=== PATIENT | male | born 1950 | race Caucasian/White ===

== ENCOUNTER 2019-03-25 13:50 | Inpatient (IN) ==
[2019-03-25] MEDS ORDERED: Isovue-370 500 ML BOTTLE IVP ONE ×2 (14:14→14:21)
--- NOTE | 2019-03-25 14:17 | Emergency Department Note ---
Disposition Clinical Impression: Hyperkalemia, Urinary retention Disposition: Admitted As Inpatient Condition: Fair Time of Disposition: 17:35 General Adult HPI - General Chief complaint: ED Urogenital-Male Stated complaint: abdominal pain Time Seen by Provider: 03/25/19 14:03 Source: patient, EMS Mode of arrival: EMS Limitations: no limitations Nursing Notes Reviewed: Yes Vital Signs Reviewed: Yes - History of Present Illness HPI Narrative: Mr. James is a 68-year-old male presented to the ED reporting he cannot urinate. He reports that he had a right knee replacement on 03/11/19 and thereafter he has been unable to urinate. He reports he does have chronic history of BPH and takes Flomax and normally able to urinate and this difficulty is newer. He states that he is able to have some "dribbles" and it is nonbloody Additionally, complaining of pelvic pain. Reports that he is having bowel movements which are nonbloody. Additionally he reports he was supposed to follow outpatient after surgical intervention with his orthopedic surgeon but he was unable to because of severe pain in his bilateral legs. He is reporting worsening pain in his right leg. He is reporting the edema for him is new and he does not have any history of congestive heart failure or edema. Additionally he is reporting difficulty breathing and in the past reports he has never had any difficulty breathing and normally saturates 97% on room air. Denies fever, chills, nausea, emesis, chest pain, hematuria, bowel changes. Pain Scale: 9 - Related Data Home Medications Medication Instructions Recorded Confirmed Allopurinol [Zyloprim] 300 mg PO QAM 03/25/19 03/25/19 Amlodipine Besylate 10 mg PO QAM 03/25/19 03/25/19 Aspirin 325 mg PO BID 03/25/19 03/25/19 Bisoprolol/HCTZ [Ziac 1 tab PO QPM 03/25/19 03/25/19] Docusate [Colace] 100 mg PO QAM 03/25/19 03/25/19 Fenofibrate Nanocrystallized 145 mg PO QAM 03/25/19 03/25/19 [Fenofibrate] Lisinopril [Zestril] 20 mg PO BID 03/25/19 03/25/19 Metformin HCl [Glucophage] 1,000 mg PO BID 03/25/19 03/25/19 Nitroglycerin [Nitrostat] 0.4 mg SL PRN PRN 03/25/19 03/25/19 Oxycodone HCl [Roxybond] 5 mg PO Q8HR PRN 03/25/19 03/25/19 Pravastatin Sodium [Pravachol] 80 mg PO QPM 03/25/19 03/25/19 Tamsulosin HCl [Flomax] 0.4 mg PO QPM 03/25/19 03/25/19 Tizanidine HCl [Zanaflex] 4 mg PO HS PRN 03/25/19 03/25/19 Allergies Allergy/AdvReac Type Severity Reaction Status Date / Time No Known Allergies Allergy Verified 03/25/19 14:26 All systems ED: reviewed and negative except as stated. Review of Systems: As Per HPI Constitutional: Denies: fever, chills, weakness Eyes: Denies: eye pain, vision change Cardiovascular: Denies: chest pain, palpitations Respiratory: Reports: dyspnea. Denies: cough, wheezes Gastrointestinal: Reports: abdominal pain. Denies: nausea, vomiting, hematochezia Genitourinary: Reports: other (Difficulty urinating). Denies: dysuria, frequency Musculoskeletal: Reports: other (Bilateral leg swelling, leg pain) Neurological: Denies: headache, weakness Past Medical History - Past Medical History Medical history: Reports: diabetes, hyperlipidemia, hypertension, syncope Psychiatric history: Reports: no psych history - Social History Smoking Status: Never smoker Smokeless Tobacco Status: No Alcohol use: Reports: none Drug use: Reports: none Physical Exam - General Limitations: no limitations General appearance: alert - Head Head exam: atraumatic, normocephalic - Eye Eye exam: Present: normal appearance, EOMI. Absent: scleral icterus - ENT ENT exam: normal exam, normal oropharynx, mucous membranes moist - Neck Neck exam: Present: normal inspection, full ROM, trachea midline - Chest Chest inspection: Present: normal inspection, symmetric chest wall rise. Absent: tenderness - Respiratory Respiratory exam: Present: other (Decreased breath sounds on left lower lung). Absent: respiratory distress, wheezes - Cardiovascular Cardiovascular exam: Present: regular rate, normal rhythm, +S1, +S2 - Abdominal Exam Abdominal exam: Present: tenderness (Tenderness in the pelvic region). Absent: distention, guarding - Extremities Exam Extremities exam: Present: tenderness, pedal edema (+3 pitting edema bilateral lower extremity), calf tenderness (Right leg calf tenderness) - Neurological Exam Neurological exam: Present: alert, oriented X3 - Psychiatric Psychiatric exam: Present: normal affect, normal mood - Skin Skin exam: Present: warm, normal color (right leg is edematous and erythematous) Course Vital Signs Temperature 97.7 F 03/25/19 13:54 Pulse Rate 71 03/25/19 13:54 Respiratory Rate 20 03/25/19 13:54 Blood Pressure 134/86 03/25/19 13:54 O2 Sat by Pulse Oximetry 95 03/25/19 13:54 Temperature 97.7 F 03/25/19 13:54 Pulse Rate 64 03/25/19 15:52 Respiratory Rate 20 03/25/19 15:52 Blood Pressure 124/66 03/25/19 15:52 O2 Sat by Pulse Oximetry 95 03/25/19 15:52 Oxygen Delivery Oxygen Delivery Room Air Medical Decision Making - MDM Narrative Medical decision making narrative: Mr. James is a 68-year-old male presents to the ED complaining of urinary retention. He reports potential started prior to discharge and has been ongoing. He reports last time he urinated he reports urinary retention since 03/11/19. Denies any hematuria. She reports bilateral leg pain worse in the right leg. Denies fever, chills, chest pain. Does report shortness of breath which is new. CBC, BMP, EKG, CTA, bilateral lower summary Dopplers were ordered. EKG showed prolonged NM interval with hyperkalemia of 7.2. Subsequently he received calcium gluconate, insulin, DuoNeb and normal saline. Nephrology was consult and spoke with Dr. 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 She also agreed with the current treatment plan and reported reevaluating the BMP and giving Kayexalate which was ordered. After fluids were given and medication repeat potassium showed potassium of 6.3. CTA had to be canceled due to his renal impairment. Subsequently chest x-ray was ordered which showed cardiomegaly with interstitial edema. Lower extremity Doppler showed left upper leg DVT. Spoke with the admitting hospitalist who recommended getting a renal ultrasound and they would follow the results during inpatient. Patient has been admitted under the hospitalist service. - Lab Data Lab results reviewed: Yes I reviewed the patient's lab results. Result diagrams: 03/25/19 18:16 03/25/19 21:17 Lab Results 03/25/19 03/25/19 03/25/19 Range/Units 14:12 14:12 14:26 WBC 9.0 (4.3-11.1) K/mcL RBC 3.42 L (4.19-5.50) M/mcL Hgb 8.7 L (12.9-16.9) g/dL Hct 27.6 L (37.5-50.1) % MCV 80.7 L (83.0-100.0) fL MCH 25.4 L (28.0-33.3) pg MCHC 31.5 L (31.6-35.5) g/dL RDW 15.2 H (11.5-14.5) % Plt Count 386 (140-400) K/mcL MPV 10.1 (9.4-12.4) fL Immature Gran % 0.4 (0-4) % Seg Neutrophils % 77.6 % Lymphocytes % 10.7 % Monocytes % 10.4 % Eosinophils % 0.8 % Basophils % 0.1 % Neutrophils # 7.0 (1.6-8.9) K/mcL Lymphocytes # 1.0 (0.6-4.6) K/mcL Monocytes # 0.9 (0.0-1.3) K/mcL Eosinophils # 0.1 (0.0-0.6) K/mcL Basophils # 0.0 (0.0-0.2) K/mcL Sodium 131 L (136-145) mEq/L Potassium 7.2 H* (3.5-5.1) mEq/L Chloride 97 L (98-107) mEq/L Carbon Dioxide 16 L (23-29) mEq/L BUN > 130 H (8-23) mg/dL Creatinine 13.33 H (0.70-1.30) mg/dL Est GFR ( Amer) 5 L (> 60) Est GFR (Non-Af Amer) 4 L (> 60) BUN/Creatinine Ratio TNP Glucose 171 H (70-105) mg/dL Calculated Osmolality TNP Calcium 8.5 L (8.6-10.3) mg/dL Urine Color Yellow (Yellow) Urine Clarity Clear (Clear) Urine pH 5.5 (5.0-8.0) pH Units Ur Specific [place] 1.025 (1.010-1.025) Urine Protein Negative (Neg-Trace) mg/dL Urine Glucose (UA) Normal (Normal) mg/dL Urine Ketones Negative (Negative) mg/dL Urine Blood Large H (Negative) Urine Nitrite Negative (Negative) Urine Bilirubin Negative (Negative) Urine Urobilinogen Normal (Normal) mg/dL Ur Leukocyte Esterase Negative (Negative) Urine Microscopic RBC 50-100 H (0-3) per hpf Urine Microscopic WBC 0-3 (0-3) per hpf Ur Squamous Epith Cells Moderate H (None-Few) per lpf Urine Bacteria None Seen (None-Few) per hpf Hyaline Casts None Seen (None-Few) per lpf Ur Culture Indicated? NO (NO) 03/25/19 Range/Units 15:58 WBC (4.3-11.1) K/mcL RBC (4.19-5.50) M/mcL Hgb (12.9-16.9) g/dL Hct (37.5-50.1) % MCV (83.0-100.0) fL MCH (28.0-33.3) pg MCHC (31.6-35.5) g/dL RDW (11.5-14.5) % Plt Count (140-400) K/mcL MPV (9.4-12.4) fL Immature Gran % (0-4) % Seg Neutrophils % % Lymphocytes % % Monocytes % % Eosinophils % % Basophils % % Neutrophils # (1.6-8.9) K/mcL Lymphocytes # (0.6-4.6) K/mcL Monocytes # (0.0-1.3) K/mcL Eosinophils # (0.0-0.6) K/mcL Basophils # (0.0-0.2) K/mcL Sodium (136-145) mEq/L Potassium 6.3 H (3.5-5.1) mEq/L Chloride (98-107) mEq/L Carbon Dioxide (23-29) mEq/L BUN (8-23) mg/dL Creatinine (0.70-1.30) mg/dL Est GFR ( Amer) (> 60) Est GFR (Non-Af Amer) (> 60) BUN/Creatinine Ratio Glucose (70-105) mg/dL Calculated Osmolality Calcium (8.6-10.3) mg/dL Urine Color (Yellow) Urine Clarity (Clear) Urine pH (5.0-8.0) pH Units Ur Specific [place] (1.010-1.025) Urine Protein (Neg-Trace) mg/dL Urine Glucose (UA) (Normal) mg/dL Urine Ketones (Negative) mg/dL Urine Blood (Negative) Urine Nitrite (Negative) Urine Bilirubin (Negative) Urine Urobilinogen (Normal) mg/dL Ur Leukocyte Esterase (Negative) Urine Microscopic RBC (0-3) per hpf Urine Microscopic WBC (0-3) per hpf Ur Squamous Epith Cells (None-Few) per lpf Urine Bacteria (None-Few) per hpf Hyaline Casts (None-Few) per lpf Ur Culture Indicated? (NO) - Radiology Data Radiology results reviewed: Yes I reviewed the patient's radiology results. Critical Care Time Critical Care Time: Yes Total Critical Care Time: 35 Attestation: Acute deep vein thrombosis, acute hyperkalemia, acute dehydration with renal failure, Attestation Statement - Attestation Attestation: Dr. Quinn note: Patient seen in conjunction with resident Dr. Nidhi Ritter; please see her charting for complete documentation. Spent [id number] time with the patient and agree with the patient's treatment and disposition. Renal failure and hyperkalemia noted and treated appropriately. Vital signs stable on admission. Likely obstructive renal failure which will rapidly improve. Deep vein thrombosis noted. Due to blood loss over the last couple weeks likely postsurgical we will withhold emergent anticoagulants and allow these to be discussed and rechecked by the hospitalist due to the patient's hemoglobin and kidney function. No black stools reported. Breathing much improved prior to admission. No significant arrhythmia noted despite the hyperkalemia which is improved with initial treatments. Admitted and stabilized improved condition to the hospitalist.
[2019-03-25 14:26] LABS: Basophils % 0.1 %; Eosinophils # 0.1 K/mcL (0.0-0.6); Eosinophils % 0.8 %; Hematocrit 27.6 % (37.5-50.1); Hemoglobin 8.7 g/dL (12.9-16.9); Immature Granulocytes % 0.4 % (0-4); Lymphocytes % 10.7 %; Mean Corpuscular HGB Conc 31.5 g/dL (31.6-35.5); Mean Corpuscular Hemoglobin 25.4 pg (28.0-33.3); Mean Corpuscular Volume 80.7 fL (83.0-100.0); Mean Platelet Volume 10.1 fL (9.4-12.4); Monocytes # 0.9 K/mcL (0.0-1.3); Monocytes % 10.4 %; Platelet Count 386 K/mcL (140-400); Red Blood Count 3.42 M/mcL (4.19-5.50); Red Cell Distribution Width 15.2 % (11.5-14.5); Segmented Neutrophils % 77.6 %
[2019-03-25 14:38] LABS: Bilirubin,Urine Negative (Negative); Blood,Urine Large (Negative); Clarity,Urine Clear (Clear); Color,Urine Yellow (Yellow); Glucose,Urine (UA) Normal (Normal); Ketones,Urine Negative (Negative); Leukocyte Esterase,Urine Negative (Negative); Nitrite,Urine Negative (Negative); PH,Urine 5.5 pH Units (5.0-8.0); Protein,Urine Negative (Neg-Trace); Specific Gravity,Urine 1.025 (1.010-1.025); Urobilinogen,Urine Normal (Normal)
[2019-03-25 14:40] LABS: Bacteria,Urine None Seen per hpf (None-Few); Hyaline Casts,Urine None Seen per lpf (None-Few); RBC,Urine 50-100 per hpf (0-3); Squamous Epithelial Cell,Urine Moderate per lpf (None-Few); WBC,Urine 0-3 per hpf (0-3)
[2019-03-25 14:51] LABS: Blood Urea Nitrogen > 130 mg/dL (8-23); Calcium 8.5 mg/dL (8.6-10.3); Carbon Dioxide 16 mEq/L (23-29); Chloride 97 mEq/L (98-107); Glucose 171 mg/dL (70-105); Potassium 7.2 mEq/L (3.5-5.1); Sodium 131 mEq/L (136-145); eGFR For African Americans 5 (> 60); eGFR For Non-African Americans 4 (> 60)
[2019-03-25] MEDS ORDERED: Calcium Gluconate 1gm/50mL 1 GM/50 ML BAG IVPB ONE (15:01)
[2019-03-25] MEDS ORDERED: Insulin Human Regular 10 UNIT in 0.9 % Sodium Chloride 10 ML IV ONE ×2 (15:01→17:23)
[2019-03-25] MEDS ORDERED: 0.9 % Sodium Chloride 1,000 ML IVC ONE ×2 (15:06→16:05)
[2019-03-25] MEDS ORDERED: Ipratropium/Albuterol Neb 3 ML IH ONE (15:08)
[2019-03-25] MEDS ORDERED: *HR* Dextrose 50 % in Water (Syg) 50 ML SYRINGE IVP ONE (15:10)
[2019-03-25] MEDS ORDERED: *HR* Dextrose 50 % in Water (Vial) 50 ML VIAL IVP ONE (17:23)
[2019-03-25] MEDS ORDERED: Naloxone 0.4 MG/ML INJ IVP PRN (17:33)
[2019-03-25] MEDS ORDERED: MOM Conc 10 ML UD.LIQ PO PRN (17:33)
[2019-03-25] MEDS ORDERED: *HR* Heparin 5,000 UNIT/ML VIAL IVP ONE (17:38)
[2019-03-25] MEDS ORDERED: *HR* Heparin 5,000 UNIT/ML VIAL IVP PRN ×2 (17:38)
[2019-03-25] MEDS ORDERED: *HR* Dextrose 50 % in Water (Syg) 50 ML SYRINGE IVP PRN (17:40)
[2019-03-25] MEDS ORDERED: Dextrose Gel 15 GM/37.5 ML TUBE PO PRN ×2 (17:40)
[2019-03-25] MEDS ORDERED: D5% in Water 1,000 ML IVC PRN ×2 (17:40→17:52)
[2019-03-25] MEDS ORDERED: Nitroglycerin 0.4 MG TAB.SUBL SL PRN (17:44)
--- NOTE | 2019-03-25 17:45 | Internal Med History&Physical ---
Date of Encounter: 03/25/19 Time of Encounter: 17:41 Internal Medicine - H&P: HPI Chief complaint: unable to urinate Admitted From: Home Plans for Post Hospital Care: Transfer [facility] History of present illness: Mr. James is a 68 year old male diabetes, hyperlipidemia, hypertension, recent right knee replacement presented to [facility] ED with complaint of being unable to urinate. As per patient he recently had a right knee replacement on 03/11/19 by and immediately to leave postoperation he had difficulty urinating so a catheter was inserted which alleviated his symptoms however he was discharged without a catheter in since his discharge she is been unable to urinate. He reports dribbling and has to strain in order to start his stream, he denies frequency or pain however does report that the quantity of his urine has greatly decreased. In addition to above he also complains of abdominal discomfort that keeps him from moving as much as he would like to. He denies nausea, vomiting o r diarrhea. He has no difficulty having bowel movements and denies any blood in his bowel movement. He was supposed to follow-up with his orthopedic surgeon however he is been unable to so since he has no ride in his right lower extremity pain has kept him from walking. He reports that his right lower extremity has been swollen since the procedure and has been red which he reports that it some but improving. He reports that he lost significant amount of blood during surgery as he was told by his surgeon. He denies loss of sensation to the right lower extremity, denies loss of function of the right lower extremity. Denies fever, chills, nausea, emesis, chest pain, shortness breath, palpi tations, hematuria, bowel changes. While in the emergency department he was found to have a left upper leg DVT. He was found to have acute renal failure with hyperkalemia of 7.2 which was treated. As per ED physician he had 1700 mL output after Liu was placed. He was endorsed for further management of his acute renal failure and electrolyte abnormalities along with left leg DVT in right lower extremity swelling and pain. Past Med Surg Social Fam HX - Past Medical History Medical history: diabetes, hyperlipidemia, hypertension, syncope Additional medical history: Gout, AAA Psychiatric history: no psych history - Past Surgical History Additional surgical history: bilateral knee replacements - Social History Smoking Status: Never smoker Smokeless Tobacco Status: No Alcohol use: none Drug use: none Internal Medicine - H&P: Meds Allopurinol [Zyloprim] 300 mg PO DAILY 03/25/19 [History] Amlodipine Besylate 10 mg PO DAILY 03/25/19 [History] Aspirin 325 mg PO BID 03/25/19 [History] Bisoprolol/HCTZ 10/6.25 [Ziac 10/6.25] 1 tab PO DAILY 03/25/19 [History] Docusate [Colace] 100 mg PO BID PRN 03/25/19 [History] Fenofibrate Nanocrystallized [Fenofibrate] 145 mg PO DAILY 03/25/19 [History] Lisinopril [Zestril] 20 mg PO BID 03/25/19 [History] Metformin HCl [Glucophage] 1,000 mg PO BID 03/25/19 [History] Nitroglycerin [Nitrostat] 0.4 mg SL PRN PRN 03/25/19 [History] Oxycodone HCl [Roxybond] 1 tab PO Q8HR PRN 03/25/19 [History] Pravastatin Sodium [Pravachol] 80 mg PO DAILY 03/25/19 [History] Tamsulosin HCl [Flomax] 0.4 mg PO DAILY 03/25/19 [History] Tizanidine HCl [Zanaflex] 1 tab PO HS PRN 03/25/19 [History] Allergy/AdvReac Type Severity Reaction Status Date / Time No Known Allergies Allergy Verified 03/25/19 14:26 All Systems PM: A 10-system review of systems was performed and is negative for pertinent findings except as documented above in the HPI. - Constitutional Vitals: Temp Pulse Resp BP Pulse Ox 97.7 F 64 20 124/66 95 03/25/19 13:54 03/25/19 15:52 03/25/19 15:52 03/25/19 15:52 03/25/19 15:52 Exam: General: Patient is alert, oriented, no acute distress, speaks in full sentences Head: atraumatic, normocephalic, Eye: normal appearance, PERRL, no scleral icterus, no conjunctival injection ENT: mucous membranes moist, normal external ear exam Neck: normal inspection, trachea midline, full ROM, Chest: normal inspection, symmetric chest rise Respiratory: Good respiratory effort. decreased breathsounds lisandro. occasional crackles in the posterior lung field Cardiovascular: Regular rate and rhythm. s1 and s2 No clicks, rubs, gallops, or murmors. Abdomen: Bowel sounds present normoactive x-4 quadrants. Abdomen is soft, nondistended. no Epigastric tenderness. No guarding or rebound. No organ omegaly noted, obese musculoskeletal: Spontaneously moving all extremities.3edema of the RLE up to m id thigh, no calf tenderness of the LLE. Skin: warm, dry, intact.right leg is warm, erythematoues up to mid thigh, sensation is intact, unable to feel pulse secondary to swelling, ROM on toes intact, scattered ecchymosis and petichae Neuro: Alert and oriented x3 no focal deficit Psych: Patient's affect is normal Internal Med - H&P Results - Labs CBC & Chem 7: 03/25/19 14:12 03/25/19 15:58 Labs: Short CBC 03/25/19 Range/Units 14:12 WBC 9.0 (4.3-11.1) K/mcL Hgb 8.7 L (12.9-16.9) g/dL Hct 27.6 L (37.5-50.1) % Plt Count 386 (140-400) K/mcL Neutrophils # 7.0 (1.6-8.9) K/mcL BMP 03/25/19 03/25/19 14:12 15:58 Sodium 131 L Potassium 7.2 H* 6.3 H Chloride 97 L Carbon Dioxide 16 L BUN > 130 H Creatinine 13.33 H Glucose 171 H Calcium 8.5 L Urine 03/25/19 Range/Units 14:26 Urine Color Yellow (Yellow) Urine Clarity Clear (Clear) Urine pH 5.5 (5.0-8.0) pH Units Ur Specific [place] 1.025 (1.010-1.025) Urine Protein Negative (Neg-Trace) mg/dL Urine Glucose (UA) Normal (Normal) mg/dL - EKG Data -: EKG Interpreted by Myself (prolonged UT, IVCD) - EKG Data Prior EKG available for review: no - Impressions ITS Impressions Chest X-Ray 03/25/19 15:57 IMPRESSION: Cardiomegaly and interstitial edema. D/ / Andrés Interiano MD / Andrés Interiano MD Interpreting Provider: Andrés Interiano MD - Assessment and Plan (1) Acute renal failure (ARF) Current Visit: Yes Status: Acute Assessment and plan: multifactorial post obstructive in addition to contrast induced and possible rhabdomyolysis UA with large blood and 50-100 RBC CPK STAT liu inserted with 1800 CC of urine draianed CT A/P without contrast STAT nephrology consulted IVF with NS at 100 cc per hour watch for overload strict intake and out put daily weighs avoid nephrotoxic medications. depending on CT A/p wll consider urology consultation. flomax Qualifiers: Acute renal failure type: unspecified Qualified Code(s): N17.9 - Acute k idney failure, unspecified (2) DVT (deep venous thrombosis) Current Visit: Yes Status: Acute Assessment and plan: starte don heparin drip continue to monitor H/H Qualifiers: DVT location: lower extremity Affected thrombotic vein of extremity: unspecified vein of extremity Chronicity: acute Laterality: left Qualified Code(s): I82.402 - Acute embolism and thrombosis of unspecified deep veins of left lower extremity (3) Hyperkalemia Current Visit: Yes Status: Acute Assessment and plan: secondary to acute renal failure EKG with prolonged UT no hyper acute t waves - received calcium gluconate was treated with IV insulin and D50 and kayaxalate in the ED - and potassium trended down from 7.2 to 6.3 was tretaed again with insulin and D50. EKG ordered follow potassium at 7 pm and treat if he is still hyperkalemic nephrology on board if the hyperkalemia is persistent consider dialysis (4) Status post right knee replacement Current Visit: Yes Status: Acute Assessment and plan: right leg is warm, erythematoues up to mid thigh, sensation is intact, unable to feel pulse secondary to swelling, ROM on toes intact, scattered ecchymosis and petichae rule out compartment syndrome CPK stat discussed case with Dr. Richey who will see the patient and will recommend further imaging and lab test based on his examination Pt/OT once cleared by ortho (5) Microcytic anemia Current Visit: Yes Status: Acute Assessment and plan: as per chart review hemoglobin was 13.2 in 2018 hemoglobin is 8.7 on admission ( does report that his recent orthopedic procedure resulted in blood loss) vs CKD rule out GI bleed ( has been on ASA for DVT prophylaxis) iron panel, ferritin, LDH, b12 and folate ordered type and cross ordered transfuse <7 FOBT (6) Obesity (BMI 35.0-39.9 without comorbidity) Current Visit: Yes Status: Acute Assessment and plan: was counseled nutrition consult (7) Diabetes mellitus Current Visit: Yes Status: Acute Assessment and plan: hold all home oral diabetic medication insulin Sliding scale and adjust as per finger stick A1c in AM Qualifiers: Diabetes mellitus type: type 2 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 Diabetes mellitus complication status: without complication Qualified Code(s): E11.9 - Type 2 diabetes mellitus without complications (8) High anion gap metabolic acidosis Current Visit: Yes Status: Acute Assessment and plan: secondary to ARF rule out other etiologies ( lactic acidosis and rhabdomyolysis) will continue to treat the underlying abnormality ( ARF) nephrology on board PH ordered (9) DVT prophylaxis Current Visit: Yes Status: Acute Assessment and plan: on heparin drip - Time Spent With Patient Total time spent is greater than 50% in coordination of care (as documented) at patient's floor/unit and/or counseling patient: Greater than 35 minutes
[2019-03-25] MEDS ORDERED: Pantoprazole 40 MG VIAL IVP ONE (17:51)
[2019-03-25] MEDS: Heparin 25,000 UNIT/250 ML D5W 25,000 UNIT/250 ML IV.SOLN IVC SCH (18:20)
[2019-03-25 18:36] LABS: Hematocrit 28.8 % (37.5-50.1); Hemoglobin 9.2 g/dL (12.9-16.9); Mean Corpuscular HGB Conc 31.9 g/dL (31.6-35.5); Mean Corpuscular Volume 81.4 fL (83.0-100.0); Mean Platelet Volume 10.1 fL (9.4-12.4); Platelet Count 429 K/mcL (140-400); Red Blood Count 3.54 M/mcL (4.19-5.50); Red Cell Distribution Width 14.9 % (11.5-14.5); White Blood Count 6.8 K/mcL (4.3-11.1)
[2019-03-25 18:52] LABS: Heparin anti-factor XA UFH 0.03 IU/mL (0.30-0.70)
[2019-03-25 18:53] LABS: INR 1.3; Prothrombin Time 15.3 Seconds (9.4-12.1)
[2019-03-25 20:01] LABS: % Iron Saturation 15 % (20-55); Albumin 3.9 g/dL (3.5-5.7); Albumin/Globulin Ratio 1.3 (1.1-2.2); Bilirubin,Direct 0.3 mg/dL (0.0-0.2); Bilirubin,Indirect 0.5 mg/dL (0.0-1.2); Bilirubin,Total 0.8 mg/dL (0.3-1.0); Iron 70 mcg/dL (65-175); Total Protein 6.9 g/dL (6.4-8.9); Transferrin 328 mg/dL (203-362)
[2019-03-25 20:02] LABS: Blood Urea Nitrogen > 130 mg/dL (8-23); Calcium 9.4 mg/dL (8.6-10.3); Carbon Dioxide 19 mEq/L (23-29); Chloride 108 mEq/L (98-107); Glucose 73 mg/dL (70-105); Phosphorous 7.4 mg/dL (2.7-4.5); Potassium 4.8 mEq/L (3.5-5.1); Sodium 143 mEq/L (136-145); eGFR For African Americans 7 (> 60); eGFR For Non-African Americans 6 (> 60)
[2019-03-25 20:20] LABS: Ferritin 230 ng/mL (20-250)
--- NOTE | 2019-03-25 20:22 | Orthopedic Consult Note ---
Date of Encounter: 03/25/19 Time of Encounter: 20:14 History of Present Illness Chief complaint: Follow-up right total knee arthroplasty HPI: Mr. James is a 68 year old male underwent a relatively uncomplicated right total knee arthroplasty 2 weeks ago today. The patient did have acute urinary retention postop, this is treated with intermittent straight catheterization. By postop day #1 the patient was ambulatory and active. He was voiding though small amounts. The patient had previously undergone a left total knee arthroplasty last year with a similar postoperative course of postop urinary retention that resolved in time. Patient states that he got home on 1218. He states that he has had very limited voiding since that time. The patient was supposed to follow-up in the office for follow-up but has not made the follow-up appointment. Patient does h ave a history of urinary retention, he is on tamsulosin regularly. Difficult to obtain the true history but it appears patient has had limited ambulation or working with his total knee. I have reviewed the patient's history and physical examination as well as his current medical record. Pertinent orthopedic examination was pleasant 68-year-old gentleman in minimal distress at this time. Infante catheter was placed in the emergency room and probably 4 L or more of urine was returned. Vital signs are stable. Patient is afebrile. Right lower extremity reveals ecchymosis in the toes and posteriorly in the calf. Calf is soft. Knee incision is clean dry and healthy. Anticipated erythema and edema in the leg. Neurovascular exam is grossly intact. Range of motion is quite limited at 0 to probably 40 degrees. Hemoglobin is stable at 9.2. Platelet count is elevated 429. White blood cell count is normal. Urinalysis does not reveal evidence of an infection. A Doppler ultrasound reportedly reveals some evidence of clot in the left lower extremity but not the right. Impression: Postop right total knee arthroplasty, complicated by urinary retention and acute renal insufficiency. Recommendation: At this time I recommend the patient resume physical therapy working on range of motion and ambulation exercises as soon as he is medically approved to do so. Anticoagulation can be instituted at your discretion. Patient can be weightbearing as tolerated on the right lower extremity. Would elevate the lower extremity was needed to help alleviate some of the edema, this should resolve as his kidney function improves as well. Thank you very much for allowing me to see care for Mr. James. Sincerely, Jorden Richey,DO Past Med Surg Social Fam HX - Past Medical History Medical history: diabetes, hyperlipidemia, hypertension, syncope Additional medical history: Gout, AAA Psychiatric history: no psych history - Past Surgical History Additional surgical history: bilateral knee replacements - Social History Smoking Status: Never smoker Smokeless Tobacco Status: No Alcohol use: none Drug use: none Medications and Allergies Allopurinol [Zyloprim] 300 mg PO QAM 03/25/19 [History] Amlodipine Besylate 10 mg PO QAM 03/25/19 [History] Aspirin 325 mg PO BID 03/25/19 [History] Bisoprolol/HCTZ 10.25 [Ziac 25] 1 tab PO QPM 03/25/19 [History] Docusate [Colace] 100 mg PO QAM 03/25/19 [History] Fenofibrate Nanocrystallized [Fenofibrate] 145 mg PO QAM 03/25/19 [History] Lisinopril [Zestril] 20 mg PO BID 03/25/19 [History] Metformin HCl [Glucophage] 1,000 mg PO BID 03/25/19 [History] Nitroglycerin [Nitrostat] 0.4 mg SL PRN PRN 03/25/19 [History] Oxycodone HCl [Roxybond] 5 mg PO Q8HR PRN 03/25/19 [History] Pravastatin Sodium [Pravachol] 80 mg PO QPM 03/25/19 [History] Tamsulosin HCl [Flomax] 0.4 mg PO QPM 03/25/19 [History] Tizanidine HCl [Zanaflex] 4 mg PO HS PRN 03/25/19 [History] Allergy/AdvReac Type Severity Reaction Status Date / Time No Known Allergies Allergy Verified 03/25/19 14:26 All Systems Reviewed: The remainder of the systems were reviewed and are negative Physical Exam - Constitutional Vitals: Temp Pulse Resp BP Pulse Ox 97.7 F 62 15 128/74 97 03/25/19 13:54 03/25/19 19:38 03/25/19 19:38 03/25/19 19:38 03/25/19 19:38 Results - Labs Result Diagrams: 03/25/19 18:16 03/25/19 19:19 Labs: Abnormal lab results RBC 3.54 M/mcL (4.19-5.50) L 03/25/19 18:16 Hgb 9.2 g/dL (12.9-16.9) L 03/25/19 18:16 Hct 28.8 % (37.5-50.1) L 03/25/19 18:16 MCV 81.4 fL (83.0-100.0) L 03/25/19 18:16 MCH 26.0 pg (28.0-33.3) L 03/25/19 18:16 MCHC 31.5 g/dL (31.6-35.5) L 03/25/19 14:12 RDW 14.9 % (11.5-14.5) H 03/25/19 18:16 Plt Count 429 K/mcL (140-400) H 03/25/19 18:16 PT 15.3 Seconds (9.4-12.1) H 03/25/19 18:16 Heparin Anti-Xa, Unfract 0.03 IU/mL (0.30-0.70) L 03/25/19 18:16 Sodium 131 mEq/L (136-145) L 03/25/19 14:12 Potassium 6.3 mEq/L (3.5-5.1) H 03/25/19 15:58 Chloride 108 mEq/L (98-107) H 03/25/19 19:19 Carbon Dioxide 19 mEq/L (23-29) L 03/25/19 19:19 BUN > 130 mg/dL (8-23) H 03/25/19 19:19 9.23 mg/dL (0.70-1.30) H 03/25/19 19:19 Est GFR ( Amer) 7 (> 60) L 03/25/19 19:19 Est GFR (Non-Af Amer) 6 (> 60) L 03/25/19 19:19 Glucose 171 mg/dL (70-105) H 03/25/19 14:12 Calcium 8.5 mg/dL (8.6-10.3) L 03/25/19 14:12 Phosphorus 7.4 mg/dL (2.7-4.5) H 03/25/19 19:19 % Saturation 15 % (20-55) L 03/25/19 19:19 0.3 mg/dL (0.0-0.2) H 03/25/19 19:19 Large (Negative) H 03/25/19 14:26 50-100 per hpf (0-3) H 03/25/19 14:26 Ur Squamous Epith Cells Moderate per lpf (None-Few) H 03/25/19 14:26 H & H 03/25/19 03/25/19 Range/Units 14:12 18:16 Hgb 8.7 L 9.2 L (12.9-16.9) g/dL Hct 27.6 L 28.8 L (37.5-50.1) % All other labs normal. Consult Discharge Plan - Plan Referrals: NONE,PCP [Primary Care Provider] -
[2019-03-25] MEDS: Insulin LISPRO 300 UNITS/3 ML VIAL SQ SCH ×2 (20:25→22:49)
[2019-03-25] MEDS: 0.9 % Sodium Chloride 1,000 ML IVC SCH (20:30)
[2019-03-25] MEDS: *HR* OxyCODONE Immed Rel 5 MG TABLET PO PRN (20:49)
[2019-03-25 21:42] LABS: Folate 13.5 ng/mL (3.0-16.0)
[2019-03-25 22:14] LABS: Calcium 9.5 mg/dL (8.6-10.3); Potassium 4.7 mEq/L (3.5-5.1)
[2019-03-26 01:43] LABS: Basophils % 0.1 %; Eosinophils % 0.4 %; Hematocrit 28.2 % (37.5-50.1); Immature Granulocytes % 0.4 % (0-4); Lymphocytes # 0.8 K/mcL (0.6-4.6); Lymphocytes % 11.9 %; Mean Corpuscular HGB Conc 31.9 g/dL (31.6-35.5); Mean Corpuscular Hemoglobin 25.5 pg (28.0-33.3); Mean Corpuscular Volume 79.9 fL (83.0-100.0); Mean Platelet Volume 10.4 fL (9.4-12.4); Monocytes # 0.9 K/mcL (0.0-1.3); Monocytes % 12.1 %; Neutrophils # 5.3 K/mcL (1.6-8.9); Platelet Count 434 K/mcL (140-400); Red Blood Count 3.53 M/mcL (4.19-5.50); Red Cell Distribution Width 15.3 % (11.5-14.5); Segmented Neutrophils % 75.1 %
[2019-03-26 01:55] LABS: VBG Ionized Calcium 1.15 mmol/L (1.15-1.35)
[2019-03-26 02:04] LABS: Albumin 3.7 g/dL (3.5-5.7); Albumin/Globulin Ratio 1.2 (1.1-2.2); Bilirubin,Total 0.9 mg/dL (0.3-1.0); Calcium 9.3 mg/dL (8.6-10.3); Globulin 3.2 g/dL (2.4-3.5); Magnesium 2.3 mg/dL (1.6-2.6); Potassium 4.5 mEq/L (3.5-5.1); Total Protein 6.9 g/dL (6.4-8.9)
[2019-03-26] MEDS: Insulin LISPRO 300 UNITS/3 ML VIAL SQ SCH ×4 (05:03→20:35)
[2019-03-26] MEDS: 0.9 % Sodium Chloride 1,000 ML IVC SCH ×2 (05:05→14:52)
[2019-03-26] MEDS: *HR* OxyCODONE Immed Rel 5 MG TABLET PO PRN ×2 (05:06→20:34)
[2019-03-26 07:16] LABS: VBG PH 7.42 pH Units (7.32-7.42)
[2019-03-26] MEDS: amLODIPine 5 MG TABLET PO SCH (08:13)
[2019-03-26] MEDS: Fenofibrate 54 MG TABLET PO SCH (08:13)
[2019-03-26] MEDS: Heparin 25,000 UNIT/250 ML D5W 25,000 UNIT/250 ML IV.SOLN IVC SCH ×2 (10:14→11:05)
[2019-03-26] MEDS ORDERED: *HR* Heparin 5,000 UNIT/ML VIAL IVP PRN ×2 (10:28)
--- NOTE | 2019-03-26 10:32 | Internal Med Progress Note ---
Hospitalist Progress Note - Encounter Date of Encounter: 03/26/19 Time of Encounter: 08:00 - Subjective Interval History: patient was seen and examined at bedside. he reports that he is feeling much netter than yesterday. continue to urinate. denies Nausea, vomiting but has hd diarrhea ( from kayaxalate that he was given for hyperkalemia. denies SOB or CP. all questions answered. - Exam Vitals: Temp Pulse Resp BP Pulse Ox 97.6 F 78 18 153/80 99 03/26/19 07:17 03/26/19 07:17 03/26/19 07:17 03/26/19 07:17 03/26/19 07:17 Exam: General: Patient is alert, oriented, no acute distress, speaks in full sentences Head: atraumatic, normocephalic, Eye: normal appearance, PERRL, no scleral icterus, no conjunctival injection ENT: mucous membranes moist, normal external ear exam Neck: normal inspection, trachea midline, full ROM, Chest: normal inspection, symmetric chest rise Respiratory: Good respiratory effort. decreased breathsounds lisandro. occasional crackles in the posterior lung field Cardiovascular: Regular rate and rhythm. s1 and s2 No clicks, rubs, gallops, or murmors. Abdomen: Bowel sounds present normoactive x-4 quadrants. Abdomen is soft, non distended. no Epigastric tenderness. No guarding or rebound. No organomegaly noted, obese musculoskeletal: Spontaneously moving all extremities.3edema of the RLE up to mid thigh, no calf tenderness of the LLE. Skin: warm, dry, intact.right leg is warm, erythematoues up to mid thigh, sensation is intact, unable to feel pulse secondary to swelling, ROM on toes intact, scattered ecchymosis and petichae Neuro: Alert and oriented x3 no focal deficit Psych: Patient's affect is normal liu with orange urine - Assessment and Plan (1) Acute renal failure (ARF) Current Visit: Yes Status: Acute Assessment and Plan: multifactorial post obstructive in addition to contrast induced and possible rhabdomyolysis creatinine was 1.15 in december 2018 UA with large blood and 50-100 RBC CPK WNL liu catheter- ,making good amount of urine CT A/P as below ( mild hydronephrosis most likely secondary to obstruction) nephrology on board IVF with NS at 100 cc per hour watch for overload strict intake and out put daily weighs avoid nephrotoxic medications. flomax CtA/p New mild bilateral hydronephrosis and proximal bilateral hydroureter. That may have been secondary to urinary bladder distention or mild urinary bladder wall thickening at the ureterovesical junctions in the setting of cystitis. At the current time, however, the urinary bladder is nondistended, with Liu catheter in place. Cholelithiasis. Mild diffuse subcutaneous edema, likely secondary to mild anasarca. Moderate diverticulosis of the sigmoid colon, but without CT evidence of diverticulitis. (2) DVT (deep venous thrombosis) Current Visit: Yes Status: Acute Assessment and Plan: on heparin drip - will continue until renal functions have stabilized and most likley switch to NOAC continue to monitor H/H (3) Status post right knee replacement Current Visit: Yes Status: Acute Assessment and Plan: right leg is warm, erythematoues up to mid thigh, sensation is intact, unable to feel pulse secondary to swelling, ROM on toes intact, scattered ecchymosis and petichae ruled out compartment syndrome Dr. Richey on board CPK WNL Pt/ot consulted (4) Microcytic anemia Current Visit: Yes Status: Acute Assessment and Plan: as per chart review hemoglobin was 13.2 in 2018 hemoglobin is 8.7 on admission ( does report that his recent orthopedic procedure resulted in blood loss) vs CKD rule out GI bleed ( has been on ASA for DVT prophylaxis) iron panel, ferritin, LDH, and folate noted B12 226- started replacement type and cross ordered transfuse <7 FOBT positive - GI consulted (5) Obesity (BMI 35.0-39.9 without comorbidity) Current Visit: Yes Status: Acute Assessment and Plan: was counseled nutrition consult (6) Diabetes mellitus Current Visit: Yes Status: Acute (7) High anion gap metabolic acidosis Current Visit: Yes Status: Acute Assessment and Plan: secondary to ARF rule out other etiologies ( lactic acidosis and rhabdomyolysis) will continue to treat the underlying abnormality ( ARF) nephrology on board (8) DVT prophylaxis Current Visit: Yes Status: Acute Assessment and Plan: on heparin drip (9) Hyperkalemia Current Visit: Yes Status: Resolved Assessment and Plan: secondary to acute renal failure - resolved - Time Spent with Patient Total time spent is greater than 50% in coordination of care (as documented) at patient's floor/unit and/or counseling patient: Internal Medicine: Result - Labs CBC & Chem 7: 03/26/19 01:11 03/26/19 01:11 Labs: Short CBC 03/25/19 03/25/19 03/26/19 Range/Units 14:12 18:16 01:11 WBC 9.0 6.8 7.0 (4.3-11.1) K/mcL Hgb 8.7 L 9.2 L 9.0 L (12.9-16.9) g/dL Hct 27.6 L 28.8 L 28.2 L (37.5-50.1) % Plt Count 386 429 H 434 H (140-400) K/mcL Neutrophils # 7.0 5.3 (1.6-8.9) K/mcL BMP 03/25/19 03/25/19 03/25/19 14:12 15:58 19:19 Sodium 131 L 143 D Potassium 7.2 H* 6.3 H 4.8 Chloride 97 L 108 H Carbon Dioxide 16 L 19 L BUN > 130 H > 130 H Creatinine 13.33 H 9.23 H Glucose 171 H 73 Calcium 8.5 L 9.4 03/25/19 03/26/19 21:17 01:11 Sodium 146 H 144 Potassium 4.7 4.5 Chloride 108 H 110 H Carbon Dioxide 18 L 18 L BUN 122 H 107 H Creatinine 8.09 H 6.15 H Glucose 102 141 H Calcium 9.5 9.3 Liver Function 03/25/19 03/26/19 Range/Units 19:19 01:11 Total Bilirubin 0.8 0.9 (0.3-1.0) mg/dL Direct Bilirubin 0.3 H (0.0-0.2) mg/dL AST 21 19 (13-39) Units/L ALT 8 8 (7-52) Units/L Alkaline Phosphatase 44 43 (34-104) Units/L Albumin 3.9 3.7 (3.5-5.7) g/dL Urine 03/25/19 Range/Units 14:26 Urine Color Yellow (Yellow) Urine Clarity Clear (Clear) Urine pH 5.5 (5.0-8.0) pH Units Ur Specific [place] 1.025 (1.010-1.025) Urine Protein Negative (Neg-Trace) mg/dL Urine Glucose (UA) Normal (Normal) mg/dL - ABG Interpretation ABG results: PT/INR, D-dimer PT 15.3 Seconds (9.4-12.1) H 03/25/19 18:16 - Impressions Impressions Chest X-Ray 03/25/19 15:57 IMPRESSION: Cardiomegaly and interstitial edema. D/ / Andrés Interiano MD / Andrés Interiano MD Interpreting Provider: Andrés Interiano MD Retroperitoneum Ultrasound 03/25/19 17:11 IMPRESSION: Minimal right-sided hydronephrosis. Mild left-sided hydronephrosis. Bladder wall thickening. Enlarged prostate gland. Correlate with PSA values. D/ / 03/25/2019 18:12:51 Jonathan Richter MD / lore Interpreting Provider: Jonathan Richter MD Abdomen/Pelvis CT 03/25/19 17:24 IMPRESSION: New mild bilateral hydronephrosis and proximal bilateral hydroureter. That may have been secondary to urinary bladder distention or mild urinary bladder wall thickening at the ureterovesical junctions in the setting of cystitis. At the current time, however, the urinary bladder is nondistended, with Liu catheter in place. Cholelithiasis. Mild diffuse subcutaneous edema, likely secondary to mild anasarca. Moderate diverticulosis of the sigmoid colon, but without CT evidence of diverticulitis. D/ / Paulino Adam MD / Paulino Adam MD Interpreting Provider: Paulino Adam MD Consult Discharge Plan - Plan Referrals: Daisy Costa, SUPERVISOR HISTOLOGY [Partnered Physician] - 04/04/19 10:30 am (Dr. Bender is out of the office ) ____ (1) Acute renal failure (ARF) Qualifiers: Acute renal failure type: unspecified Qualified Code(s): N17.9 - Acute kidney failure, unspecified (2) DVT (deep venous thrombosis) Qualifiers: DVT location: lower extremity Affected thrombotic vein of extremity: unspecified vein of extremity Chronicity: acute Laterality: left Qualified Code(s): I82.402 - Acute embolism and thrombosis of unspecified deep veins of left lower extremity (6) Diabetes mellitus Qualifiers: Diabetes mellitus type: type 2 Diabetes mellitus product developer insulin use: without product developer use Diabetes mellitus complication status: without complication Qualified Code(s): E11.9 - Type 2 diabetes mellitus without complications
[2019-03-26 10:47] LABS: Estimated Average Glucose 160 mg/dl
--- NOTE | 2019-03-26 12:45 | Electrocardiograph Report ---
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
--- NOTE | 2019-03-26 19:08 | Nephrology Consult Note ---
Date of Encounter: 03/26/19 Assessment and Plan (1) Acute renal failure (ARF) Current Visit: Yes Status: Acute Agree with liu Agree with IVF Avoid nephrotoxins if possible No acute indication for director service at this time Agree with flomax started Will check urine sodium, creatinine and eosinophil to complete FÉLIX workup Qualifiers: Acute renal failure type: unspecified Qualified Code(s): N17.9 - Acute kidney failure, unspecified (2) Status post right knee replacement Current Visit: Yes Status: Acute (3) Urinary retention Current Visit: Yes Status: Acute (4) Hyperkalemia Current Visit: Yes Status: Resolved Past Med Surg Social Fam HX - Past Medical History Medical history: diabetes, hyperlipidemia, hypertension, syncope Additional medical history: Gout, AAA Psychiatric history: no psych history - Past Surgical History Additional surgical history: bilateral knee replacements - Social History Smoking Status: Never smoker Smokeless Tobacco Status: No Alcohol use: none Drug use: none - Family History Mother Hx Family Endocrine Disorder: Yes (DM) Father Hx Family Cardiac Disorders: Yes (HTN) Hx Family Cancer: Yes (Liver) Medications and Allergies Allopurinol [Zyloprim] 300 mg PO QAM 03/25/19 [History] Amlodipine Besylate 10 mg PO QAM 03/25/19 [History] Aspirin 325 mg PO BID 03/25/19 [History] Bisoprolol/HCTZ 10/6.25 [Ziac 10/6.25] 1 tab PO QPM 03/25/19 [History] Docusate [Colace] 100 mg PO QAM 03/25/19 [History] Fenofibrate Nanocrystallized [Fenofibrate] 145 mg PO QAM 03/25/19 [History] Lisinopril [Zestril] 20 mg PO BID 03/25/19 [History] Metformin HCl [Glucophage] 1,000 mg PO BID 03/25/19 [History] Nitroglycerin [Nitrostat] 0.4 mg SL PRN PRN 03/25/19 [History] Oxycodone HCl [Roxybond] 5 mg PO Q8HR PRN 03/25/19 [History] Pravastatin Sodium [Pravachol] 80 mg PO QPM 03/25/19 [History] Tamsulosin HCl [Flomax] 0.4 mg PO QPM 03/25/19 [History] Tizanidine HCl [Zanaflex] 4 mg PO HS PRN 03/25/19 [History] Allergy/AdvReac Type Severity Reaction Status Date / Time No Known Allergies Allergy Verified 03/25/19 14:26 Exam - Vital Signs Vital signs: Initial Vital Signs Temp Pulse Resp BP Pulse Ox 97.7 F 71 20 134/86 95 03/25/19 13:54 03/25/19 13:54 03/25/19 13:54 03/25/19 13:54 03/25/19 13:54 Vital Signs - Last 8 Hours Temp Pulse Resp BP Pulse Ox 03/26/19 16:05 98.3 F 69 18 123/72 97 03/26/19 11:24 97.8 F 85 18 129/80 97 Intake and Output 03/26/19 03/26/19 03/26/19 07:59 15:59 23:59 Intake Total 2069 / 5690 2511 / 5690 1110 / 5690 Output Total 4100 / 8400 3500 / 8400 800 / 8400 Balance -2031 / -2710 -989 / -2710 310 / -2710 Intake: IV Fluids 1069 / 2150 1081 / 2150 0.9 % Sodium Chloride 1,000 ML 950 / 1900 950 / 1900 @ 100 mls/hr IVC .Q10H BRAD Rx#: [id number] Heparin 25,000 UNIT/250 ML D5W 119 / 250 131 / 250 25,000 unit In 250 ml @ 14 UNIT /KG/HR 15.774 mls/hr IVC . [id number] BRAD Rx#:[id number] Oral 1000 / 3020 910 / 3020 1110 / 3020 Free Water 520 / 520 Output: Catheter 4100 / 8400 3500 / 8400 800 / 8400 Other: Meal Lunch Dinner Percent of Meal Consumed 75% 50% Stool Size Moderate Small Stool Consistency loose loose Stool Color Brown # Bowel Movements 1 1 Weight 99.7 kg Blood Glucose* 124 197 158 Patient Weight 03/26/19 23:59 Weight 99.7 kg Results - Lab Results 03/26/19 01:11 03/26/19 01:11 Consult Discharge Plan - Plan Referrals: Daisy Costa CNP [Partnered Physician] - 04/04/19 10:30 am (Dr. Bender is out of the office )
--- NOTE | 2019-03-26 21:16 | Orthopedics Progress Note ---
Date of Encounter: 03/26/19 Time of Encounter: 21:13 Subjective Principal diagnosis: Status post right total knee arthroplasty Interval history: 03/26/2019. Patient is feeling much better today. Subcutaneous abdominal pain. Less leg pain and improve function. Vital signs are stable. Patient is afebrile. Leg is improved. Thigh and calf compartments are soft. Edema has diminished. Ecchymosis remains. Knee incision remains healthy. Hemoglobin stable at 9. Platelet count remains elevated at 434. Kidney function is improved dramatically. Impression: Status post right total knee arthroplasty, orthopedic status is stable. Recommendation: Continue to work range of motion and strengthening exercises for the right lower extremity. Currently on heparin for a left common femoral DVT. Can anticoagulate as necessary. Kidney recovery per nephrology service. Orthopedic status is stable. Please advise me if I can be of further assistance in patient's treatment. We will need follow-up with me after discharge from hospital. Objective Vital signs: Vital Signs Temp Pulse Resp BP Pulse Ox 03/26/19 20:14 98.4 F 71 19 137/65 97 03/26/19 16:05 98.3 F 69 18 123/72 97 03/26/19 11:24 97.8 F 85 18 129/80 97 03/26/19 07:17 97.6 F 78 18 153/80 99 03/26/19 02:59 98.6 F 70 20 138/80 97 03/25/19 23:42 97.9 F 77 18 139/88 97 03/25/19 22:51 67 Intake and Output 03/26/19 03/26/19 03/26/19 07:59 15:59 23:59 Intake Total 2069 / 5690 2511 / 5690 1110 / 5690 Output Total 4100 / 8400 3500 / 8400 800 / 8400 Balance -2031 / -2710 -989 / -2710 310 / -2710 Intake: IV Fluids 1069 / 2150 1081 / 2150 0.9 % Sodium Chloride 1,000 ML 950 / 1900 950 / 1900 @ 100 mls/hr IVC .Q10H BRAD Rx#: [id number] Heparin 25,000 UNIT/250 ML D5W 119 / 250 131 / 250 25,000 unit In 250 ml @ 14 UNIT /KG/HR 15.774 mls/hr IVC . [id number] BRAD Rx#:[id number] Oral 1000 / 3020 910 / 3020 1110 / 3020 Free Water 520 / 520 Output: Catheter 4100 / 8400 3500 / 8400 800 / 8400 Other: Meal Lunch Dinner Percent of Meal Consumed 75% 50% Stool Size Moderate Small Stool Consistency loose loose Stool Color Brown # Bowel Movements 1 1 Weight 99.7 kg Blood Glucose* 124 197 168 Patient Weight 03/26/19 23:59 Weight 99.7 kg - Labs CBC & BMP: 03/26/19 01:11 03/26/19 01:11 Labs: Abnormal lab results RBC 3.53 M/mcL (4.19-5.50) L 03/26/19 01:11 Hgb 9.0 g/dL (12.9-16.9) L 03/26/19 01:11 Hct 28.2 % (37.5-50.1) L 03/26/19 01:11 MCV 79.9 fL (83.0-100.0) L 03/26/19 01:11 MCH 25.5 pg (28.0-33.3) L 03/26/19 01:11 MCHC 31.5 g/dL (31.6-35.5) L 03/25/19 14:12 RDW 15.3 % (11.5-14.5) H 03/26/19 01:11 Plt Count 434 K/mcL (140-400) H 03/26/19 01:11 PT 15.3 Seconds (9.4-12.1) H 03/25/19 18:16 Heparin Anti-Xa, Unfract 0.03 IU/mL (0.30-0.70) L 03/25/19 18:16 Sodium 146 mEq/L (136-145) H 03/25/19 21:17 Potassium 6.3 mEq/L (3.5-5.1) H 03/25/19 15:58 Chloride 110 mEq/L (98-107) H 03/26/19 01:11 Carbon Dioxide 18 mEq/L (23-29) L 03/26/19 01:11 BUN 107 mg/dL (8-23) H 03/26/19 01:11 6.15 mg/dL (0.70-1.30) H 03/26/19 01:11 Est GFR ( Amer) 11 (> 60) L 03/26/19 01:11 Est GFR (Non-Af Amer) 9 (> 60) L 03/26/19 01:11 Glucose 141 mg/dL (70-105) H 03/26/19 01:11 POC Glucose 158 mg/dL (70-99) H 03/26/19 16:07 7.2 % (-5.6) H 03/26/19 01:11 334 (280-300) H 03/26/19 01:11 Calcium 8.5 mg/dL (8.6-10.3) L 03/25/19 14:12 Phosphorus 7.4 mg/dL (2.7-4.5) H 03/25/19 19:19 % Saturation 15 % (20-55) L 03/25/19 19:19 0.3 mg/dL (0.0-0.2) H 03/25/19 19:19 Vitamin B12 226 pg/mL (250-1100) L 03/25/19 19:19 Large (Negative) H 03/25/19 14:26 50-100 per hpf (0-3) H 03/25/19 14:26 Ur Squamous Epith Cells Moderate per lpf (None-Few) H 03/25/19 14:26 Positive (Negative) A 03/26/19 04:50 Consult Discharge Plan - Plan Referrals: Daisy Costa SCIENCE INTERN [Partnered Physician] - 04/04/19 10:30 am (Dr. Bender is out of the office )
[2019-03-27] MEDS: 0.9 % Sodium Chloride 1,000 ML IVC SCH ×2 (00:50→21:26)
[2019-03-27] MEDS: Heparin 25,000 UNIT/250 ML D5W 25,000 UNIT/250 ML IV.SOLN IVC SCH ×2 (02:42→18:00)
[2019-03-27] MEDS: *HR* OxyCODONE Immed Rel 5 MG TABLET PO PRN (04:05)
[2019-03-27 07:41] LABS: Hematocrit 30.7 % (37.5-50.1); Hemoglobin 9.5 g/dL (12.9-16.9); Mean Corpuscular HGB Conc 30.9 g/dL (31.6-35.5); Mean Corpuscular Hemoglobin 25.5 pg (28.0-33.3); Mean Corpuscular Volume 82.3 fL (83.0-100.0); Mean Platelet Volume 10.3 fL (9.4-12.4); Platelet Count 410 K/mcL (140-400); Red Blood Count 3.73 M/mcL (4.19-5.50); Red Cell Distribution Width 15.4 % (11.5-14.5); White Blood Count 7.7 K/mcL (4.3-11.1)
[2019-03-27 08:02] LABS: Calcium 9.3 mg/dL (8.6-10.3); Potassium 3.4 mEq/L (3.5-5.1)
[2019-03-27] MEDS: Fenofibrate 54 MG TABLET PO SCH (08:58)
[2019-03-27] MEDS: amLODIPine 5 MG TABLET PO SCH (08:58)
[2019-03-27] MEDS: Insulin LISPRO 300 UNITS/3 ML VIAL SQ SCH ×4 (08:59→21:27)
--- NOTE | 2019-03-27 10:04 | Urology - Consult Note ---
<Shara Elaine N - Last Filed: 03/27/19 10:01> Date of Encounter: 03/27/19 Time of Encounter: 09:30 - Assessment and Plan (1) Urinary retention Current Visit: Yes Status: Acute Assessment and plan: Patient is a 68-year-old male who presents with acute urinary retention. Patient has been restarted on Flomax, and Infante catheter is indwelling and draining sufficiently. I reviewed patient's CT that revealed bilateral hydronephrosis likely secondary to urinary retention. Serum creatinine on admission was 13.33, and current serum creatinine is much improved to 1.44. Patient is aware that he will require an indwelling Infante catheter for 1-2 weeks, and we will see him as an outpatient for a voiding trial. Patient understands the importance of continuing Flomax after he is discharged. I explained to patient that the nursing staff will go over catheter care instructions and apply leg bag with straps when he is ready for discharge. Urology CN:HPI Consult date: 03/27/19 Reason for consult Urology: Other (urinary retention) Requesting physician: Chelsea Rodriguez History of present illness: Patient is a 68-year-old male who presents with urinary retention. Patient is 2 weeks status post right total knee arthroplasty, and she experienced postoperative urinary retention that was temporarily treated with intermittent straight catheterization. Patient became ambulatory on postoperative day #1, and he was discharged on 03/12/2019. Patient reports not taking Flomax postoperatively, and he experienced increased difficulty with urination. Patient presented back to the emergency department on 03/25/2019 at which time he was catheterized with 1800 mL return of urine. On admission, patient's serum creatinine was markedly elevated at 13.33. Patient was admitted with indwelling Infante catheter, and nephrology and orthopedics were consulted. Currently, patient is sitting upright in bed in no apparent distress, and Infante catheter is indwelling and draining transparent, clear yellow urine into bedside bag. Patient states this is the first time he has required an indwelling Infante catheter. Flomax has been restarted by the primary team. Patient states he does not see a urologist, and Flomax as prescribed by his PCP. Patient denies any known family history of prostate cancer. Past Med Surg Social Fam HX - Past Medical History Medical history: diabetes, hyperlipidemia, hypertension, syncope Additional medical history: Gout, AAA Psychiatric history: no psych history - Past Surgical History Additional surgical history: bilateral knee replacements - Social History Smoking Status: Never smoker Smokeless Tobacco Status: No Alcohol use: none Drug use: none - Family History Mother Hx Family Endocrine Disorder: Yes (DM) Father Hx Family Cardiac Disorders: Yes (HTN) Hx Family Cancer: Yes (Liver) Medications and Allergies Allopurinol [Zyloprim] 300 mg PO QAM 03/25/19 [History] Amlodipine Besylate 10 mg PO QAM 03/25/19 [History] Aspirin 325 mg PO BID 03/25/19 [History] Bisoprolol/HCTZ 25 [Ziac ] 1 tab PO QPM 03/25/19 [History] Docusate [Colace] 100 mg PO QAM 03/25/19 [History] Fenofibrate Nanocrystallized [Fenofibrate] 145 mg PO QAM 03/25/19 [History] Lisinopril [Zestril] 20 mg PO BID 03/25/19 [History] Metformin HCl [Glucophage] 1,000 mg PO BID 03/25/19 [History] Nitroglycerin [Nitrostat] 0.4 mg SL PRN PRN 03/25/19 [History] Oxycodone HCl [Roxybond] 5 mg PO Q8HR PRN 03/25/19 [History] Pravastatin Sodium [Pravachol] 80 mg PO QPM 03/25/19 [History] Tamsulosin HCl [Flomax] 0.4 mg PO QPM 03/25/19 [History] Tizanidine HCl [Zanaflex] 4 mg PO HS PRN 03/25/19 [History] Allergy/AdvReac Type Severity Reaction Status Date / Time No Known Allergies Allergy Verified 03/25/19 14:26 Review of Systems - Constitutional no chills, no fatigue, no fever(s) - EENT Nose, mouth and throat: no dizziness, no headache(s) - Cardiovascular no chest pain, no diaphoresis, no dyspnea - Respiratory no cough, no dyspnea - Gastrointestinal no abdominal pain, no nausea, no vomiting - Genitourinary difficulty urinating, urinary hesitancy, no dysuria, no flank pain, no hematuria, no urinary frequency, no urinary incontinence, no urinary urgency - Musculoskeletal no back pain, no muscle weakness - Integumentary no erythema, no rash - Neurological no confusion, no sensory deficit - Psychiatric no anxiety, no confusion - Hematologic/Lymphatic no easy bleeding, no easy bruising - Allergic/Immunologic no throat swelling, no wheezing Exam Initial Vital Signs Temp Pulse Resp BP Pulse Ox 97.7 F 71 20 134/86 95 03/25/19 13:54 03/25/19 13:54 03/25/19 13:54 03/25/19 13:54 03/25/19 13:54 - General physical appearance Present: no distress, no pain - Eyes Present: PERRL, normal ocular movement - ENT Present: normal nares, no hearing loss, no congestion - Neck Present: no masses, trachea midline, no lymphadenopathy - Respiratory Present: normal respiratory effort - Cardiovascular Cardiovascular exam IM: RRR - Abdomen Abdomen: Present: soft, non tender. Absent: distended - Genitourinary other (Infante catheter indwelling and draining transparent, clear yellow urine into bedside bag) - Integumentary Present: no rash, no abnormal pigmentation - Neurologic Present: normal coordination - Musculoskeletal Present: other (normal posture ) Urology Results - Labs 03/27/19 06:51 03/27/19 06:51 Abnormal lab results RBC 3.73 M/mcL (4.19-5.50) L 03/27/19 06:51 Hgb 9.5 g/dL (12.9-16.9) L 03/27/19 06:51 Hct 30.7 % (37.5-50.1) L 03/27/19 06:51 MCV 82.3 fL (83.0-100.0) L 03/27/19 06:51 MCH 25.5 pg (28.0-33.3) L 03/27/19 06:51 MCHC 30.9 g/dL (31.6-35.5) L 03/27/19 06:51 RDW 15.4 % (11.5-14.5) H 03/27/19 06:51 Plt Count 410 K/mcL (140-400) H 03/27/19 06:51 PT 15.3 Seconds (9.4-12.1) H 03/25/19 18:16 Heparin Anti-Xa, Unfract 0.20 IU/mL (0.30-0.70) L 03/27/19 06:51 Sodium 146 mEq/L (136-145) H 03/25/19 21:17 Potassium 3.4 mEq/L (3.5-5.1) L 03/27/19 06:51 Chloride 111 mEq/L (98-107) H 03/27/19 06:51 Carbon Dioxide 22 mEq/L (23-29) L 03/27/19 06:51 BUN 32 mg/dL (8-23) H 03/27/19 06:51 1.44 mg/dL (0.70-1.30) H 03/27/19 06:51 Est GFR ( Amer) 59 (> 60) L 03/27/19 06:51 Est GFR (Non-Af Amer) 49 (> 60) L 03/27/19 06:51 Glucose 138 mg/dL (70-105) H 03/27/19 06:51 POC Glucose 136 mg/dL (70-99) H 03/27/19 07:28 7.2 % (-5.6) H 03/26/19 01:11 309 (280-300) H 03/27/19 06:51 Calcium 8.5 mg/dL (8.6-10.3) L 03/25/19 14:12 Phosphorus 7.4 mg/dL (2.7-4.5) H 03/25/19 19:19 % Saturation 15 % (20-55) L 03/25/19 19:19 0.3 mg/dL (0.0-0.2) H 03/25/19 19:19 Vitamin B12 226 pg/mL (250-1100) L 03/25/19 19:19 Large (Negative) H 03/25/19 14:26 50-100 per hpf (0-3) H 03/25/19 14:26 Ur Squamous Epith Cells Moderate per lpf (None-Few) H 03/25/19 14:26 Positive (Negative) A 03/26/19 04:50 Diabetes panel 03/26/19 03/27/19 Range/Units 01:11 06:51 Sodium 145 (136-145) mEq/L Potassium 3.4 L (3.5-5.1) mEq/L Chloride 111 H (98-107) mEq/L Carbon Dioxide 22 L (23-29) mEq/L BUN 32 H (8-23) mg/dL Creatinine 1.44 H (0.70-1.30) mg/dL Glucose 138 H (70-105) mg/dL Hemoglobin A1c 7.2 H ( - 5.6) % Calcium 9.3 (8.6-10.3) mg/dL Calcium panel 03/27/19 Range/Units 06:51 Calcium 9.3 (8.6-10.3) mg/dL Pituitary panel 03/27/19 Range/Units 06:51 Sodium 145 (136-145) mEq/L Potassium 3.4 L (3.5-5.1) mEq/L Chloride 111 H (98-107) mEq/L Carbon Dioxide 22 L (23-29) mEq/L BUN 32 H (8-23) mg/dL Creatinine 1.44 H (0.70-1.30) mg/dL Glucose 138 H (70-105) mg/dL Calcium 9.3 (8.6-10.3) mg/dL Adrenal panel 03/27/19 Range/Units 06:51 Sodium 145 (136-145) mEq/L Potassium 3.4 L (3.5-5.1) mEq/L Chloride 111 H (98-107) mEq/L Carbon Dioxide 22 L (23-29) mEq/L BUN 32 H (8-23) mg/dL Creatinine 1.44 H (0.70-1.30) mg/dL Glucose 138 H (70-105) mg/dL Calcium 9.3 (8.6-10.3) mg/dL All other labs normal. - Imaging CT scan - abdomen: report reviewed, image reviewed CT scan - pelvis: report reviewed, image reviewed Consult Discharge Plan - Plan Referrals: Daisy Costa CNP [Partnered Physician] - 04/04/19 10:30 am (Dr. Bender is out of the office ) <Vadim Gurrola - Last Filed: 03/27/19 13:02> Date of Encounter: 03/27/19 - Assessment and Plan (1) Urinary retention Current Visit: Yes Status: Acute Assessment and plan: pt seen and conjunction with PA. agree with assessment and plan. pt feels fine. Cath needs to be left in place for at least one week prior to followup and attempted voiding trial. My office will contact patient with follow-up. Continue tamsulosin at discharge. We will send urine for culture because of purple hue to the catheter tubing which may indicate a bacterial infection "purple bag syndrome" Exam Initial Vital Signs Temp Pulse Resp BP Pulse Ox 97.7 F 71 20 134/86 95 03/25/19 13:54 03/25/19 13:54 03/25/19 13:54 03/25/19 13:54 03/25/19 13:54 Urology Results - Labs 03/27/19 06:51 03/27/19 06:51 Abnormal lab results RBC 3.73 M/mcL (4.19-5.50) L 03/27/19 06:51 Hgb 9.5 g/dL (12.9-16.9) L 03/27/19 06:51 Hct 30.7 % (37.5-50.1) L 03/27/19 06:51 MCV 82.3 fL (83.0-100.0) L 03/27/19 06:51 MCH 25.5 pg (28.0-33.3) L 03/27/19 06:51 MCHC 30.9 g/dL (31.6-35.5) L 03/27/19 06:51 RDW 15.4 % (11.5-14.5) H 03/27/19 06:51 Plt Count 410 K/mcL (140-400) H 03/27/19 06:51 PT 15.3 Seconds (9.4-12.1) H 03/25/19 18:16 Heparin Anti-Xa, Unfract 0.20 IU/mL (0.30-0.70) L 03/27/19 06:51 Sodium 146 mEq/L (136-145) H 03/25/19 21:17 Potassium 3.4 mEq/L (3.5-5.1) L 03/27/19 06:51 Chloride 111 mEq/L (98-107) H 03/27/19 06:51 Carbon Dioxide 22 mEq/L (23-29) L 03/27/19 06:51 BUN 32 mg/dL (8-23) H 03/27/19 06:51 1.44 mg/dL (0.70-1.30) H 03/27/19 06:51 Est GFR ( Amer) 59 (> 60) L 03/27/19 06:51 Est GFR (Non-Af Amer) 49 (> 60) L 03/27/19 06:51 Glucose 138 mg/dL (70-105) H 03/27/19 06:51 POC Glucose 136 mg/dL (70-99) H 03/27/19 07:28 7.2 % (-5.6) H 03/26/19 01:11 309 (280-300) H 03/27/19 06:51 Calcium 8.5 mg/dL (8.6-10.3) L 03/25/19 14:12 Phosphorus 7.4 mg/dL (2.7-4.5) H 03/25/19 19:19 % Saturation 15 % (20-55) L 03/25/19 19:19 0.3 mg/dL (0.0-0.2) H 03/25/19 19:19 Vitamin B12 226 pg/mL (250-1100) L 03/25/19 19:19 Large (Negative) H 03/25/19 14:26 50-100 per hpf (0-3) H 03/25/19 14:26 Ur Squamous Epith Cells Moderate per lpf (None-Few) H 03/25/19 14:26 Positive (Negative) A 03/26/19 04:50 Diabetes panel 03/27/19 Range/Units 06:51 Sodium 145 (136-145) mEq/L Potassium 3.4 L (3.5-5.1) mEq/L Chloride 111 H (98-107) mEq/L Carbon Dioxide 22 L (23-29) mEq/L BUN 32 H (8-23) mg/dL Creatinine 1.44 H (0.70-1.30) mg/dL Glucose 138 H (70-105) mg/dL Calcium 9.3 (8.6-10.3) mg/dL Calcium panel 03/27/19 Range/Units 06:51 Calcium 9.3 (8.6-10.3) mg/dL Pituitary panel 03/27/19 Range/Units 06:51 Sodium 145 (136-145) mEq/L Potassium 3.4 L (3.5-5.1) mEq/L Chloride 111 H (98-107) mEq/L Carbon Dioxide 22 L (23-29) mEq/L BUN 32 H (8-23) mg/dL Creatinine 1.44 H (0.70-1.30) mg/dL Glucose 138 H (70-105) mg/dL Calcium 9.3 (8.6-10.3) mg/dL Adrenal panel 03/27/19 Range/Units 06:51 Sodium 145 (136-145) mEq/L Potassium 3.4 L (3.5-5.1) mEq/L Chloride 111 H (98-107) mEq/L Carbon Dioxide 22 L (23-29) mEq/L BUN 32 H (8-23) mg/dL Creatinine 1.44 H (0.70-1.30) mg/dL Glucose 138 H (70-105) mg/dL Calcium 9.3 (8.6-10.3) mg/dL All other labs normal.
--- NOTE | 2019-03-27 10:38 | Gastroenterology Consult Note ---
<CalderónCarmine campbell Natividad - Last Filed: 03/27/19 10:36> Date of Encounter: 03/27/19 Time of Encounter: 09:00 - Assessment and plan (1) Microcytic anemia Status: Acute Assessment and plan: Hgb 13.2 on 06/18/2018, on admission Hgb 8.7, and today Hgb 9.5. Continue to monitor CBC and transfuse PRBC as needed. Plan for EGD and colonoscopy tomorrow. Clear liquid diet today, no red or purple. NPO at midnight. If unable tolerate NuLytely please use MiraLAX prep. If not clear by 6 AM, give 2 tap water enemas. (2) Acute renal failure (ARF) Status: Acute Assessment and plan: Management per Nephrology. Qualifiers: Acute renal failure type: unspecified Qualified Code(s): N17.9 - Acute kidney failure, unspecified (3) Status post right knee replacement Status: Acute - Time Spent With Patient Total time spent is greater than 50% in coordination of care (as documented) at patient's floor/unit and/or counseling patient: GI History of Present Illness - Data of Consult Patient: new to practice Consult date: 03/27/19 Requesting Physician: Luz Kirk - Consult Narrative Reason for consult: Acute anemia History of present illness: Mr. James is a 68 year old male with PMHx of DM, HLD, HTN, AAA, right knee replacement on 03/11/2019 who presented to the ED with complaints of difficulty urinating which started immediately postop. He also complained of some abdominal discomfort on admission but denies any at this time. He margaret fever, chills, chest pain, nausea, vomiting, constipation, diarrhea, melena, or hematochezia. While in the emergency department he was found to have a left upper leg DVT. He was found to have acute renal failure with hyperkalemia of 7.2 which was treated. We were consulted to evaluate his anemia. Hgb 13.2 on 06/18/2018, on admission Hgb 8.7, and today Hgb 9.5. Procedures: None NSAIDs: ASA Anticoagulation: None Past Med Surg Social Fam HX - Past Medical History Medical history: diabetes, hyperlipidemia, hypertension, syncope Additional medical history: Gout, AAA Psychiatric history: no psych history - Past Surgical History Additional surgical history: bilateral knee replacements - Social History Smoking Status: Never smoker Smokeless Tobacco Status: No Alcohol use: none Drug use: none - Family History Mother Hx Family Endocrine Disorder: Yes (DM) Father Hx Family Cardiac Disorders: Yes (HTN) Hx Family Cancer: Yes (Liver) - Gastrointestinal Gastrointestinal: Present: as per HPI - Constitutional Constitutional: as per HPI - EENT Eyes: as per HPI Ears: Present: as per HPI Nose, mouth and throat: Present: as per HPI - Cardiovascular Cardiovascular ROS: Present: as per HPI - Respiratory Respiratory IM: Present: as per HPI - Genitourinary Genitourinary: Absent: change in color, Urinary frequency - Neurological ROS Neurological GI: Present: as per HPI - Hematologic/Lymphatic Hematologic/Lymphatic pediatric: Present: as per HPI - Musculoskeletal Musculoskeletal ROS GI: Present: as per HPI - Integumentary Integumentary GI: Present: as per HPI - Psychiatric ROS Psychiatric GI: Present: as per HPI - Endocrine Endocrine IM: Present: as per HPI - Constitutional Vitals: Temp Pulse Resp BP Pulse Ox 98.0 F 66 18 157/74 97 03/27/19 07:25 03/27/19 07:25 03/27/19 07:25 03/27/19 07:25 03/27/19 07:25 General appearance: Present: cooperative, A&O X 3, no acute distress, answers questions appropriately - Head Head exam: Present: atraumatic, normocephalic - Eye Eye exam: Present: normal appearance, sclera anicteric - ENT ENT exam: Present: mucous membranes moist - Neck Neck exam general surgery: Present: normal inspection, trachea midline - Respiratory Respiratory exam: Present: decreased breath sounds, CTAB. Absent: rales, rhonchi - Cardiovascular Cardiovascular exam: Present: RRR, +S1, +S2 - GI/Abdominal GI/Abdominal exam: Present: soft, no peritoneal signs. Absent: distended, firm, guarding, tenderness - Rectal Rectal exam: Present: deferred - Extremities Exam Extremities exam: Present: warm - Neurological Exam Neurological exam: Present: no focal deficits - Psychiatric Psychiatric exam: Present: normal affect, normal mood - Skin Skin exam: Present: dry, intact, normal color, warm Results - Labs CBC & Chem 7: 03/27/19 06:51 06/27/19 06:51 Labs: Last Result 03/27/19 06:51 Calcium 9.3 Entire Visit 03/27/19 06:51 Hgb 9.5 L Hct 30.7 L - ABG ABG results: PT/INR, D-dimer PT 15.3 Seconds (9.4-12.1) H 03/25/19 18:16 Consult Discharge Plan - Plan Referrals: Daisy Costa CNP [Partnered Physician] - 04/04/19 10:30 am (Dr. Bender is out of the office ) Talon Espino MD [Partnered Physician] - 04/07/19 3:00 pm (Please follow up as schedule...) Vadim Gurrola MD [Partnered Physician] - 04/02/19 10:30 am (Please follow up as schedule...) Prescriptions: Sucralfate [Carafate] 1 gm PO QIDAC 30 Days tablet Omeprazole [PriLOSEC] 40 mg PO DAILY #30 cap Bisoprolol Fumarate [Zebeta] 10 mg PO DAILY #30 tablet <Héctor Andrea - Last Filed: 03/31/19 03:58> Date of Encounter: 03/27/19 - Time Spent With Patient Total time spent is greater than 50% in coordination of care (as documented) at patient's floor/unit and/or counseling patient: GI History of Present Illness - Data of Consult Requesting Physician: Luz Kirk - Consult Narrative History of present illness: Mr. James is a 68 year old male - Constitutional Vitals: Temp Pulse Resp BP Pulse Ox 98.0 F 87 16 119/72 98 03/28/19 11:24 03/28/19 11:24 03/28/19 11:24 03/28/19 11:24 03/28/19 11:24 Results - Labs CBC & Chem 7: 03/28/19 03:53 03/28/19 03:53 - ABG ABG results: PT/INR, D-dimer PT 15.3 Seconds (9.4-12.1) H 03/25/19 18:16 - Attending Attestation 68 year old male who underwent joint replacement just a few days ago comes in with severe anemia. Appears some of the blood loss probably secondary to surgery. Plan EGD and colonoscopy to make sure no GI source contributing. I have personally performed a face to face evaluation on this patient. I have reviewed and agree with the care plan. History and Exam by me shows:
--- NOTE | 2019-03-27 13:05 | Internal Med Progress Note ---
Hospitalist Progress Note - Encounter Date of Encounter: 03/27/19 Time of Encounter: 08:03 - Subjective Interval History: She was seen and examined at bedside. Significant other at bedside and all cushions answered. Reports that he is feeling much better since admission. Discussed all lab findings and he is pleased with this kidney functions. He is agreeable to have endoscopy and colonoscopy performed tomorrow. Currently he denies hematemesis, hematochezia or melena. Abdominal pain has resolved. Tolerating by mouth diet. - Exam Vitals: Temp Pulse Resp BP Pulse Ox 98.3 F 78 16 152/80 98 03/27/19 11:22 03/27/19 11:22 03/27/19 11:22 03/27/19 11:22 03/27/19 11:22 Exam: General: Patient is alert, oriented, no acute distress, speaks in full sentences Head: atraumatic, normocephalic, Eye: normal appearance, PERRL, no scleral icterus, no conjunctival injection ENT: mucous membranes moist, normal external ear exam Neck: normal inspection, trachea midline, full ROM, Chest: normal inspection, symmetric chest rise Respiratory: Good respiratory effort. decreased breathsounds liasndro. occasional crackles in the posterior lung field Cardiovascular: Regular rate and rhythm. s1 and s2 No clicks, rubs, gallops, or murmors. Abdomen: Bowel sounds present normoactive x-4 quadrants. Abdomen is soft, nondistended. no Epigastric tenderness. No guarding or rebound. No organomegaly noted, obese musculoskeletal: Spontaneously moving all extremities.3edema of the RLE up to mid thigh, no calf tenderness of the LLE. Skin: warm, dry, intact.right leg is warm, erythematoues up to mid thigh, sensation is intact, unable to feel pulse secondary to swelling, ROM on toes intact, scattered ecchymosis and petichae Neuro: Alert and oriented x3 no focal deficit Psych: Patient's affect is normal liu with orange urine - Assessment and Plan (1) Acute renal failure (ARF) Current Visit: Yes Status: Acute Assessment and Plan: multifactorial post obstructive in addition to contrast induced creatinine was 1.15 in december 2018 Creatinine was 13.3 on admission trended down to 1.4 UA with large blood and 50-100 RBC CPK WNL liu catheter- in place urology recs appreciated CT A/P as below ( mild hydronephrosis most likely secondary to obstruction) nephrology on board strict intake and out put daily weighs avoid nephrotoxic medications. flomax CtA/p New mild bilateral hydronephrosis and proximal bilateral hydroureter. That may have been secondary to urinary bladder distention or mild urinary bladder wall thickening at the ureterovesical junctions in the setting of cystitis. At the current time, however, the urinary bladder is nondistended, with Liu catheter in place. Cholelithiasis. Mild diffuse subcutaneous edema, likely secondary to mild anasarca. Moderate diverticulosis of the sigmoid colon, but without CT evidence of diverticulitis. (2) DVT (deep venous thrombosis) Current Visit: Yes Status: Acute Assessment and Plan: on heparin drip - will continue until renal functions have stabilized and EGD and colonoscopy have completed - most likely switch to NOAC continue to monitor H/H (3) Status post right knee replacement Current Visit: Yes Status: Acute Assessment and Plan: right leg is warm, erythematoues up to mid thigh, sensation is intact, unable to feel pulse secondary to swelling, ROM on toes intact, scattered ecchymosis and petichae ruled out compartment syndrome Dr. Richey on board CPK WNL Pt/ot on board (4) Microcytic anemia Current Visit: Yes Status: Acute Assessment and Plan: as per chart review hemoglobin was 13.2 in 2018 hemoglobin is 8.7 on admission ( does report that his recent orthopedic p rocedure resulted in blood loss) vs CKD rule out GI bleed ( has been on ASA for DVT prophylaxis) iron panel, ferritin, LDH, and folate noted B12 226- started replacement type and cross ordered transfuse <7 FOBT positive - GI on board for EGD and colonoscopy in a.m. (5) Obesity (BMI 35.0-39.9 without comorbidity) Current Visit: Yes Status: Acute Assessment and Plan: was counseled nutrition consult (6) Diabetes mellitus Current Visit: Yes Status: Acute Assessment and Plan: hold all home oral diabetic medication insulin Sliding scale and adjust as per finger stick A1c 7.2 (7) High anion gap metabolic acidosis Current Visit: Yes Status: Acute Assessment and Plan: secondary to ARF rule out other etiologies ( lactic acidosis and rhabdomyolysis) will continue to treat the underlying abnormality ( ARF) nephrology on board (8) DVT prophylaxis Current Visit: Yes Status: Acute Assessment and Plan: on heparin drip (9) Hyperkalemia Current Visit: Yes Status: Resolved Assessment and Plan: secondary to acute renal failure - resolved - Time Spent with Patient Total time spent is greater than 50% in coordination of care (as documented) at patient's floor/unit and/or counseling patient: Internal Medicine: Result - Labs CBC & Chem 7: 03/27/19 06:51 03/27/19 06:51 Labs: Short CBC 03/27/19 Range/Units 06:51 WBC 7.7 (4.3-11.1) K/mcL Hgb 9.5 L (12.9-16.9) g/dL Hct 30.7 L (37.5-50.1) % Plt Count 410 H (140-400) K/mcL BMP 03/27/19 06:51 Sodium 145 Potassium 3.4 L Chloride 111 H Carbon Dioxide 22 L BUN 32 H Creatinine 1.44 H Glucose 138 H Calcium 9.3 - ABG Interpretation ABG results: PT/INR, D-dimer PT 15.3 Seconds (9.4-12.1) H 03/25/19 18:16 Consult Discharge Plan - Plan Referrals: Daisy Costa CARDIAC CARE NURSE [Partnered Physician] - 04/04/19 10:30 am (Dr. Bender is out of the office ) (1) Acute renal failure (ARF) Qualifiers: Qualified Code(s): N17.9 - Acute kidney failure, unspecified (2) DVT (deep venous thrombosis) Qualifiers: Qualified Code(s): I82.402 - Acute embolism and thrombosis of unspecified deep veins of left lower extremity (6) Diabetes mellitus Qualifiers: Qualified Code(s): E11.9 - Type 2 diabetes mellitus without complications
[2019-03-27] MEDS ORDERED: SODIUM CHLORIDE/NAHCO3/KCL/PEG 4,000 ML SOLN.RECON PO ONE (17:00)
--- NOTE | 2019-03-27 17:36 | Nephrology Progress Note ---
Date of Encounter: 03/27/19 Time of Encounter: 12:00 - Assessment and Plan (1) Acute renal failure (ARF) Current Visit: Yes Status: Acute SCr drastically improved at 1.44, GFR 49 UOP remains very robust, encouraged adequate po/iv fluids to prevent volume depletion Continue to avoid nephrotoxins if possible Will sign off, please reconsult prn Qualifiers: Acute renal failure type: unspecified Qualified Code(s): N17.9 - Acute kidney failure, unspecified (2) Status post right knee replacement Current Visit: Yes Status: Acute (3) Urinary retention Current Visit: Yes Status: Acute (4) Hyperkalemia Current Visit: Yes Status: Resolved Subjective Principal diagnosis: Status post right total knee arthroplasty Interval history: Pt seen and examined feels much better. Drinking more fluids. Objective - Vital Signs Vital signs: Vital Signs Temp Pulse Resp BP Pulse Ox 03/27/19 16:22 97.7 F 62 18 141/80 97 03/27/19 11:22 98.3 F 78 16 152/80 98 03/27/19 07:25 98.0 F 66 18 157/74 97 03/27/19 04:16 97.8 F 61 19 147/65 96 03/27/19 00:53 98.6 F 67 19 156/81 96 03/26/19 20:14 98.4 F 71 19 137/65 97 Intake and Output 03/27/19 03/27/19 03/27/19 07:59 15:59 23:59 Intake Total 1000 / 3106 2106 / 3106 Output Total 3000 / 5600 2600 / 5600 Balance -2000 / -2494 2106 / -2494 -2600 / -2494 Intake: IV Fluids 1000 / 2146 1146 / 2146 0.9 % Sodium Chloride 1,000 ML 1000 / 2000 1000 / 2000 @ 100 mls/hr IVC .Q10H BRAD Rx#: [id number] Heparin 25,000 UNIT/250 ML D5W 146 / 146 25,000 unit In 250 ml @ 14 UNIT /KG/HR 15.774 mls/hr IVC . [id number] BRAD Rx#:[id number] Oral 960 / 960 Output: Catheter 3000 / 5600 2600 / 5600 Other: Meal clears Percent of Meal Consumed 100% Blood Glucose* 136 121 125 - General Appearance General appearance: Present: well-developed, well-nourished EENT: Present: ATNC, mucous membranes moist Neck: Present: no JVD, supple Respiratory: Present: clear Cardiology: Present: edema (RLE, trace, knee with healling surgical wound) - Lab 03/27/19 06:51 03/27/19 06:51 Most recent lab results 03/27/19 06:51 Calcium 9.3 Consult Discharge Plan - Plan Referrals: Daisy Costa, DIRECTOR OF STRATEGIC PROGRAMS [Partnered Physician] - 04/04/19 10:30 am (Dr. Bender is out of the office )
--- NOTE | 2019-03-27 20:27 | Anesthesia Evaluation PreOp ---
<Duc Blackwell - Last Filed: 03/27/19 20:31> Date of Encounter: 03/27/19 Time of Encounter: 20:25 - Past History Planned Operation: EGD/Colonoscopy Cardiac History: Denies any Significant Hx, HTN, Hyperlipidemia, Other (DVT, Anemia) INTERNATIONAL COORDINATOR History: Syncope Other Medical History: Renal ( Acute renal failure), Diabetes Type II, Other (Gout) Anesthesia History: Past Anesthesia (bilateral knee replacements) Alcohol Use: none Drug use: none Medications and Allergies Allopurinol [Zyloprim] 300 mg PO QAM 03/25/19 [History] Amlodipine Besylate 10 mg PO QAM 03/25/19 [History] Aspirin 325 mg PO BID 03/25/19 [History] Bisoprolol/HCTZ 07/06.25 [Ziac ] 1 tab PO QPM 03/25/19 [History] Docusate [Colace] 100 mg PO QAM 03/25/19 [History] Fenofibrate Nanocrystallized [Fenofibrate] 145 mg PO QAM 03/25/19 [History] Lisinopril [Zestril] 20 mg PO BID 03/25/19 [History] Metformin HCl [Glucophage] 1,000 mg PO BID 03/25/19 [History] Nitroglycerin [Nitrostat] 0.4 mg SL PRN PRN 03/25/19 [History] Oxycodone HCl [Roxybond] 5 mg PO Q8HR PRN 03/25/19 [History] Pravastatin Sodium [Pravachol] 80 mg PO QPM 03/25/19 [History] Tamsulosin HCl [Flomax] 0.4 mg PO QPM 03/25/19 [History] Tizanidine HCl [Zanaflex] 4 mg PO HS PRN 03/25/19 [History] Allergy/AdvReac Type Severity Reaction Status Date / Time No Known Allergies Allergy Verified 03/25/19 14:26 - Meds/Allergy Pre-op Review Medications Reviewed: Yes Allergies Reviewed: Yes Beta Blockers on Current Med List: Yes Anesthesia Results - Labs 03/27/19 06:51 03/27/19 06:51 - Imaging EKG: report reviewed (Sinus rhythm Prolonged DC interval Nonspecific intraventricular conduction delay) Additional studies: Aorto Iliac Duplex Patient Name: Jacob Dell Evonne Order Number: [id number] Procedure Date: 01/26/2016 Impressions: Findings: Left External Iliac Artery is aneursymal. Findings: Aorta and right iliac are hemodynamically well maintained. Echocardiogram Name: Dell James Date of Study: 05/20/2018 EV/EV echocardiogram Impressions: LVEF 60%. Mild basal septal hypertrophy without LVOT obstruction. Mild left ventricular diastolic dysfunction. Normal right ventricular structure and function. Mild aortic regurgitation. Mild tricuspid regurgitation. Mild pulmonary hypertension. Dilated aortic root measuring 4.1 cm. Anesthesia Exam Vital Signs/O2 Sat, Most Current Temp Pulse Resp BP Pulse Ox 97.7 F 62 18 141/80 97 03/27/19 16:22 03/27/19 16:22 03/27/19 16:22 03/27/19 16:22 03/27/19 16:22 <Jayla Aj - Last Filed: 03/28/19 08:26> Date of Encounter: 03/28/19 - Past History Cardiac History: HTN, Hyperlipidemia Pulmonary History: Denies Any Significant HX INTERNATIONAL COORDINATOR History: Syncope Other Medical History: Renal, Diabetes Type II, Other (Gout, acute blood loss anemia, DVT on heparin gtt) Anesthesia History: No Prior Anesthetic Complications, Past Anesthesia Alcohol Use: none Drug use: none - Meds/Allergy Pre-op Review Medications Reviewed: Yes Allergies Reviewed: Yes Beta Blockers on Current Med List: No Anesthesia Results - Labs 03/28/19 03:53 03/28/19 03:53 - Imaging Additional studies: IMPRESSION: Ascending thoracic aortic aneurysm measuring approximately 5.2 x 5.4 cm on this nongated study. No aortic dissection. No descending thoracic aortic aneurysm. Atherosclerotic disease with coronary artery involvement. Minimal pericardial fluid in the pericardial recesses. Residua of previous granulomatous process. No spiculated lung mass or lymphadenopathy seen in the chest. D/ / Dell Larson MD / Dell Larson MD Interpreting Provider: Dell Larson MD Anesthesia Exam Vital Signs/O2 Sat, Most Current Temp Pulse Resp BP Pulse Ox 98.3 F 70 16 172/83 95 03/28/19 08:07 03/28/19 08:07 03/28/19 08:07 03/28/19 08:07 03/28/19 08:07 Weight: 99kg NPO (# of Hours): >8 - HEENT Pupil (Motor): Pupils equal, EOMI Mallampati: III Teeth: Edentulous Oral Opening: Greater than 3 - INTERNATIONAL COORDINATOR LOC: Oriented INTERNATIONAL COORDINATOR Motor: Normal RUE, Normal LUE, Normal RLE, Normal LLE, Normal Face INTERNATIONAL COORDINATOR Sensory: Normal: RUE, LUE, RLE, LLE, Face - Cardiac Rhythm: Regular - Pulmonary Breath Sounds: bilateral Clear Respiratory Effort: Symmetrical Anesthesia Assess/Plan ASA Score: 4 Level of consciousness: Cooperative Anesthetic Plan: General, MAC Monitoring Plan: Standard Monitors Recovery Plan: PACU
[2019-03-28] MEDS: 0.9 % Sodium Chloride 1,000 ML IVC SCH (00:57)
[2019-03-28 04:21] LABS: Hematocrit 29.8 % (37.5-50.1); Hemoglobin 9.2 g/dL (12.9-16.9); Mean Corpuscular HGB Conc 30.9 g/dL (31.6-35.5); Mean Corpuscular Hemoglobin 25.8 pg (28.0-33.3); Mean Corpuscular Volume 83.5 fL (83.0-100.0); Platelet Count 375 K/mcL (140-400); Red Blood Count 3.57 M/mcL (4.19-5.50); White Blood Count 8.2 K/mcL (4.3-11.1)
[2019-03-28 04:37] LABS: BUN/Creatinine Ratio 17 (6-26); Blood Urea Nitrogen 18 mg/dL (8-23); Calcium 8.8 mg/dL (8.6-10.3); Carbon Dioxide 20 mEq/L (23-29); Chloride 111 mEq/L (98-107); Glucose 127 mg/dL (70-105); Osmolality,Calculated 295 (280-300); Potassium 3.5 mEq/L (3.5-5.1); Sodium 141 mEq/L (136-145); eGFR For African Americans > 60 (> 60); eGFR For Non-African Americans > 60 (> 60)
[2019-03-28] MEDS ORDERED: Lidocaine -MPF 2% 2 ML VIAL ONE (06:35)
[2019-03-28] MEDS ORDERED: Propofol 500 MG/50 ML INFUS..BTL ONE (06:35)
[2019-03-28] MEDS ORDERED: *HR* PHENYLEPHRINE 1,000 MCG/10 ML SYRINGE IVP ONE (07:36)
[2019-03-28] MEDS ORDERED: EPHEDrine 50 MG/ML VIAL ONE (07:48)
[2019-03-28] MEDS ORDERED: Cyanocobalamin (B-12) 1,000 MCG TABLET PO SCH (09:00)
--- NOTE | 2019-03-28 09:08 | Anesthesia Evaluation Post Op ---
Date of Encounter: 03/28/19 Time of Encounter: 09:07 - Vital Signs Vital Signs: Vital Signs/O2 Sat, Most Current Temp Pulse Resp BP Pulse Ox 98.3 F 70 16 172/83 95 03/28/19 08:07 03/28/19 08:07 03/28/19 08:07 03/28/19 08:07 03/28/19 08:07 - Lungs Lungs: Clear Ascult./Percussion - Airway Airway: Non-obstructed - Cardiovascular Regular Rate - Mental Status Mental Status: Baseline Status - Pain Pain Scale: 0 Pain Scale used: Numeric (1 - 10) - Nausea Vomiting Nausea Vomiting: Not Present - Hydration Hydration: Tolerates oral liquids - Discharge PostOp Status: Transfer Patient to floor
[2019-03-28] MEDS ORDERED: Apixaban 5 MG TABLET PO SCH (09:19)
[2019-03-28] MEDS: Insulin LISPRO 300 UNITS/3 ML VIAL SQ SCH ×2 (10:02→11:54)
[2019-03-28] MEDS: amLODIPine 5 MG TABLET PO SCH (10:04)
[2019-03-28] MEDS: Fenofibrate 54 MG TABLET PO SCH (10:04)
[2019-03-28 11:25] VITALS: BP 119/72
--- NOTE | 2019-03-28 14:28 | Discharge Summary ---
- NOTES TO OUTPATIENT PROVIDER Notes to Outpatient Provider: follow up with urology as OP. follow with PCP as Op. OP hematology for anemia and DVT Orders not resulted at time of discharge: Pending orders 03/27/19 13:03 Culture,Urine [RM] Routine Date of Encounter: 03/28/19 Time of Encounter: 14:22 - Discharge Diagnosis (1) Acute renal failure (ARF) Priority: Primary Status: Acute Qualifiers: Acute renal failure type: unspecified Qualified Code(s): N17.9 - Acute kidney failure, unspecified (2) DVT (deep venous thrombosis) Priority: Secondary Status: Acute Qualifiers: DVT location: lower extremity Affected thrombotic vein of extremity: unspecified vein of extremity Chronicity: acute Laterality: left Qualified Code(s): I82.402 - Acute embolism and thrombosis of unspecified deep veins of left lower extremity (3) Status post right knee replacement Priority: Secondary Status: Acute (4) Microcytic anemia Priority: Secondary Status: Acute (5) Obesity (BMI 35.0-39.9 without comorbidity) Priority: Secondary Status: Acute (6) Diabetes mellitus Priority: Secondary Status: Acute Qualifiers: Diabetes mellitus type: type 2 Diabetes mellitus longterm insulin use: without longterm use Diabetes mellitus complication status: without complication Qualified Code(s): E11.9 - Type 2 diabetes mellitus without co mplications (7) High anion gap metabolic acidosis Priority: Secondary Status: Acute (8) DVT prophylaxis Priority: Secondary Status: Acute (9) Hyperkalemia Priority: Secondary Status: Resolved Hospital course: "Mr. James is a 68 year old male diabetes, hyperlipidemia, hypertension, recent right knee replacement presented to [facility] ED with complaint of being unable to urinate. As per patient he recently had a right knee replacement on 03/11/19 by and immediately to leave postoperation he had difficulty urinating so a catheter was inserted which alleviated his symptoms however he was discharged without a catheter in since his discharge she is been unable to urinate. He reports dribbling and has to strain in order to start his stream, he denies frequency or pain however does report that the quantity of his urine has greatly decreased. In addition to above he also complains of abdominal discomfort that keeps him from moving as much as he would like to. He denies nausea, vomiting or diarrhea. He has no difficulty having bowel movements and denies any blood in his bowel movement. He was supposed to follow-up with his orthopedic surgeon however he is been unable to so since he has no ride in his right lower extremity pain has kept him from walking. He reports that his right lower extremity has been swollen since the procedure and has been red which he reports that it some but improving. He reports that he lost significant amount of blood during surgery as he was told by his surgeon. He denies loss of sensation to the right lower extremity, denies loss of function of the right lower extremity. Denies fever, chills, nausea, emesis, chest pain, shortness breath, palpitations, hematuria, bowel changes. While in the emergency department he was found to have a left upper leg DVT. He was found to have acute renal failure with hyperkalemia of 7.2 which was treated. As per ED physician he had 1700 mL output after Liu was placed. He was endorsed for further management of his acute renal failure and electrolyte abnormalities along with left leg DVT in right lower extremity swelling and pain." patient presented with above presentation. liu catheter was placed, CT A/p performed results below. nephrology and urology were consulted. DVT study performed for lE swelling, he was started on heparin drip for DVT. orthopedics were consulted and recommended to continue with physical therapy adn OP follow up and that the erythema and swelling were post operative changes, CPK was WNL no signs of compartment syndrome. he was found to be anemic and FOBT was positive, GI was consulted and EGD and colonoscopy were performed which showed grade a reflux esophagitis, erosive gastropathy and normal first portion of duodenum and second portion of the duodenum. Colonoscopy showed poor preparation of colon and diverticulosis in the sigmoid colon. Hemoglobin and hematocrit were followed and states stable hemoglobin on discharge was 9.2. Vitamin B12 was 226 and he was started on oral replacement. nursing staff aware to provide follow up with hematology for anemia and DVT. to continue with liu and follow up with urology for void trails. as per urology " Patient is aware that he will require an indwelling Liu catheter for 1-2 weeks, and we will see him as an outpatient for a voiding trial. Patient understands the importance of continuing Flomax after he is discharged. I explained to patient that the nursing staff will go over catheter care instructions and apply leg bag with straps when he is ready for discharge." liu care as per nursing. his home BP medicatins reconciled. HCTZ was discontinued. ACEI was continued and for renal functions to be repeated on 03/31. creatinine on discharge was 1.09, GFR >60. metformin discontinued and he was continued on sliding scale until renal functions have stabilized. consider restarting oral diabetic medication as per SNF physician based on Bmp on 03/31. eliquis 10 mg BID until 04/04 and from 04/04 to start 5 mg BID Discharge discussed with: patient, family, nurse, social work, case management, resourcing consultant - Time Spent with Patient Total time spent providing and/or coordinating discharge services: Time spent: Greater than 30 minutes (40) - Discharge Medications Prescriptions: New RX: Apixaban [Eliquis] 10 mg PO BID #13 tablet RX: Apixaban [Eliquis] 5 mg PO BID 30 Days #60 tablet RX: Insulin LISPRO [HumaLOG] 0 units SQ TIDAC #1 vial RX: MOM Conc [MILK OF MAGNESIA conc] 10 ml PO DAILY PRN ud.liq PRN Reason: Constipation RX: Cyanocobalamin (B-12) [Vitamin B12] 1,000 mcg PO DAILY #14 tablet RX: Bisoprolol Fumarate [Zebeta] 10 mg PO DAILY #30 tablet Sucralfate [Carafate] 1 gm PO QIDAC 30 Days tablet RX: Omeprazole [PriLOSEC] 40 mg PO DAILY #30 cap Continued RX: Tamsulosin HCl [Flomax] 0.4 mg PO QPM RX: Pravastatin Sodium [Pravachol] 80 mg PO QPM RX: Docusate [Colace] 100 mg PO QAM RX: Oxycodone HCl [Roxybond] 5 mg PO Q8HR PRN PRN Reason: Pain RX: Nitroglycerin [Nitrostat] 0.4 mg SL PRN PRN PRN Reason: Chest Pain RX: Lisinopril [Zestril] 20 mg PO BID RX: Fenofibrate Nanocrystallized [Fenofibrate] 145 mg PO QAM RX: Amlodipine Besylate 10 mg PO QAM RX: Allopurinol [Zyloprim] 300 mg PO QAM Discontinued RX: Bisoprolol/HCTZ 07/06.25 [Ziac 10/.25] 1 tab PO QPM RX: Tizanidine HCl [Zanaflex] 4 mg PO HS PRN PRN Reason: Muscle Pain Aspirin 325 mg PO BID RX: Metformin HCl [Glucophage] 1,000 mg PO BID Home Medications: RX: Allopurinol [Zyloprim] 300 mg PO QAM 03/25/19 [History] RX: Amlodipine Besylate 10 mg PO QAM 03/25/19 [History] RX: Docusate [Colace] 100 mg PO QAM 03/25/19 [History] RX: Fenofibrate Nanocrystallized [Fenofibrate] 145 mg PO QAM 03/25/19 [History] RX: Lisinopril [Zestril] 20 mg PO BID 03/25/19 [History] RX: Nitroglycerin [Nitrostat] 0.4 mg SL PRN PRN 03/25/19 [History] RX: Oxycodone HCl [Roxybond] 5 mg PO Q8HR PRN 03/25/19 [History] RX: Pravastatin Sodium [Pravachol] 80 mg PO QPM 03/25/19 [History] RX: Tamsulosin HCl [Flomax] 0.4 mg PO QPM 03/25/19 [History] RX: Apixaban [Eliquis] 5 mg PO BID 30 Days #60 tablet 03/28/19 [Rx] RX: Apixaban [Eliquis] 10 mg PO BID #13 tablet 03/28/19 [Rx] RX: Bisoprolol Fumarate [Zebeta] 10 mg PO DAILY #30 tablet 03/28/19 [Rx] RX: Cyanocobalamin (B-12) [Vitamin B12] 1,000 mcg PO DAILY #14 tablet 03/28/19 [Rx] RX: Insulin LISPRO [HumaLOG] 0 units SQ TIDAC #1 vial 03/28/19 [Rx] RX: MOM Conc [MILK OF MAGNESIA conc] 10 ml PO DAILY PRN ud.liq 03/28/19 [Rx] RX: Omeprazole [PriLOSEC] 40 mg PO DAILY #30 cap 03/28/19 [Rx] Sucralfate [Carafate] 1 gm PO QIDAC 30 Days tablet 03/28/19 [Rx] Allergies/Adverse Reactions: Allergy/AdvReac Type Severity Reaction Status Date / Time No Known Allergies Allergy Verified 03/25/19 14:26 Date of admission: 03/25/19 19:24 Primary care physician: PCP NONE Consults: 03/25/19 16:56 Consult to Nephrology [CONS] Routine Consulting Provider: Kidney Destini/JULISSA/JESSE/JESUS Reason for Consult: FÉLIX with elevated BUN and creatinine Call Completed: Yes 03/25/19 17:37 Consult to Orthopedic Surgery [CONS] Stat Consulting Provider: Jorden Richey Reason for Consult: right knee replacement Call Completed: Yes 03/25/19 17:40 Consult to Case Management [CONS] Routine Comment: Consult to Nutrition [CONS] Routine Comment: Consulting Provider: NUTRITION Reason for Dietary Consult: PO Supplementation Consult to Physical Therapy [CONS] Routine Comment: Evaluate, develop and implement POC Reason for Consult: dispostion Does patient have active BEDREST order?: No Is patient medically & hemodynamically stable?: Yes Patient assessed for mobility or mobilized this visit?: Yes OT [Consult to Occupational Therapy] [CONS] Routine Comment: Evaluate, develop and implement POC Reason for Consult: disposition Does patient have active BEDREST order?: No Is patient medically & hemodynamically stable?: Yes Patient assessed for mobility or mobilized this visit?: Yes 03/25/19 22:44 Consult to Pastoral Services [CONS] Routine Comment: Consult to Advertising Space Clerk [CONS] Routine Reason for SW Consult: Poss need for rehab 03/26/19 10:35 Consult to Gastroenterology [CONS] Routine Consulting Provider: Gastroenteremma Georges Reason for Consult: acute anemia ( FOBT positive) Call Completed: No 03/27/19 08:31 Consult to Urology [CONS] Routine Consulting Provider: Urology Destini Reason for Consult: post obstructive renal failure- with liu now and improvement of his creatinine Call Completed: No - Constitutional Vitals: Temp Pulse Resp BP Pulse Ox 98.0 F 87 16 119/72 98 03/28/19 11:24 03/28/19 11:24 03/28/19 11:24 03/28/19 11:24 03/28/19 11:24 Exam: General: Patient is alert, oriented, no acute distress, speaks in full sentences Head: atraumatic, normocephalic, Eye: normal appearance, PERRL, no scleral icterus, no conjunctival injection ENT: mucous membranes moist, normal external ear exam Neck: normal inspection, trachea midline, full ROM, Chest: normal inspection, symmetric chest rise Respiratory: Good respiratory effort. decreased breathsounds lisandro. occasional crackles in the posterior lung field Cardiovascular: Regular rate and rhythm. s1 and s2 No clicks, rubs, gallops, or murmors. Abdomen: Bowel sounds present normoactive x-4 quadrants. Abdomen is soft, nondistended. no Epigastric tenderness. No guarding or rebound. No organomegaly noted, obese musculoskeletal: Spontaneously moving all extremities.3edema of the RLE up to mid thigh, no calf tenderness of the LLE. Skin: warm, dry, intact.right leg is warm, erythematoues up to mid thigh, sensation is intact, unable to feel pulse secondary to swelling, ROM on toes intact, scattered ecchymosis and petichae- improved Neuro: Alert and oriented x3 no focal deficit Psych: Patient's affect is normal liu catheter in place - Patient Status Disposition: Transfer SNF Condition: Fair Functional capacity at discharge: uses cane/walker Overall status at discharge: patient is progressing back to baseline - Discharge Instructions Follow Up With: Daisy Costa CNP [Partnered Physician] - 04/04/19 10:30 am (Dr. Bender is out of the office ) Talon Espino MD [Partnered Physician] - 04/07/19 3:00 pm (Please follow up as schedule...) Vadim Gurrola MD [Partnered Physician] - 04/02/19 10:30 am (Please follow up as schedule...) - Diet and Activity Activity: as per physical therapy Diet: diabetic diet, low salt diet
--- NOTE | 2019-03-28 14:55 | Physician Discharge Referral ---
[facility] Referral Info Provider in Charge after Transfer: PCP Institutional Level of Care: Skilled - Diagnosis (1) Acute renal failure (ARF) Status: Acute (2) DVT (deep venous thrombosis) Status: Acute (3) Status post right knee replacement Status: Acute (4) Microcytic anemia Status: Acute (5) Obesity (BMI 35.0-39.9 without comorbidity) Status: Acute (6) Diabetes mellitus Status: Acute (7) High anion gap metabolic acidosis Status: Acute (8) DVT prophylaxis Status: Acute (9) Hyperkalemia Status: Resolved - Transfer Medications Prescriptions: Bisoprolol Fumarate [Zebeta] 10 mg PO DAILY #30 tablet Home Medications: Allopurinol [Zyloprim] 300 mg PO QAM 03/25/19 [History] Amlodipine Besylate 10 mg PO QAM 03/25/19 [History] Docusate [Colace] 100 mg PO QAM 03/25/19 [History] Fenofibrate Nanocrystallized [Fenofibrate] 145 mg PO QAM 03/25/19 [History] Lisinopril [Zestril] 20 mg PO BID 03/25/19 [History] Nitroglycerin [Nitrostat] 0.4 mg SL PRN PRN 03/25/19 [History] Oxycodone HCl [Roxybond] 5 mg PO Q8HR PRN 03/25/19 [History] Pravastatin Sodium [Pravachol] 80 mg PO QPM 03/25/19 [History] Tamsulosin HCl [Flomax] 0.4 mg PO QPM 03/25/19 [History] Apixaban [Eliquis] 5 mg PO BID 30 Days #60 tablet 03/28/19 [Rx] Apixaban [Eliquis] 10 mg PO BID #13 tablet 03/28/19 [Rx] Bisoprolol Fumarate [Zebeta] 10 mg PO DAILY #30 tablet 03/28/19 [Rx] Cyanocobalamin (B-12) [Vitamin B12] 1,000 mcg PO DAILY #14 tablet 03/28/19 [Rx] Insulin LISPRO [HumaLOG] 0 units SQ TIDAC #1 vial 03/28/19 [Rx] MOM Conc [MILK OF MAGNESIA conc] 10 ml PO DAILY PRN ud.liq 03/28/19 [Rx] Omeprazole [PriLOSEC] 20 mg PO DAILY@0730 capsule. 03/28/19 [Rx] Allergies/Adverse Reactions: Allergy/AdvReac Type Severity Reaction Status Date / Time No Known Allergies Allergy Verified 03/25/19 14:26 - Respiratory Orders Smoking Cessation: Smoking cessation has been advised. For more information, call the [place] Tobacco Quit Line at 6-193-LUOP-NOW. - Lab Orders Lab Orders: CBC (and BMP on 03/31 to be repeated to monitor h/H and renal functions) - Advance Directives Code Status: Full Code - Mobility Orders Ambulate - Rehabiliation Orders Rehab Potential: Fair Rehab Orders: ROM Exercises, Evaluation for Physical Therapy, Evaluation for Occupational Therapy, Evaluation for Speech Therapy - Diet Orders Cardiac (diabtetic) CERTIFICATION: I certify that the transfer of the above named patient to an Extended Care Facility is necessary for the continuing treatment of the diagnosis listed. The above information is true and accurate reflection of patient's current condition. Confidential - Redisclosure prohibited without a patient's written consent.
[2019-04-04] MEDS ORDERED: Apixaban 5 MG TABLET PO SCH (09:00)
== END 2019-03-28 18:41 | DRG 683 ==
LOC: EMEROOARM 13:50 → 2NNU 19:24 → 2ANU 03-26 20:12
PROVIDERS: ADMIT Internal Medicine Nephrology; ATTEND Internal Medicine Nephrology

== ENCOUNTER 2022-04-10 09:52 | Observation (INO) ==
[~2022-04-10 09:52] MED LIST: *HR* OxyCODONE Immed Rel 5 MG TABLET PO ONE; Famotidine 20 MG TABLET PO ONE; tiZANidine 4 MG TABLET PO ONE
[2022-04-10] MEDS ORDERED: CeFAZolin Syr 2,000MG/20 ML 2,000 MG/20 ML SYRINGE IVPB ONE (10:08)
[2022-04-10] MEDS ORDERED: Ringers Solution, Lactated 1,000 ML IVC SCH ×2 (10:15→20:58)
[2022-04-10] MEDS ORDERED: *HR* FentaNYL (PF) 100 MCG/2 ML VIAL IVP PRN (10:25)
[2022-04-10] MEDS ORDERED: Ondansetron 4 MG/2 ML VIAL IVP PRN ×2 (10:25→20:58)
[2022-04-10] MEDS ORDERED: *HR* HYDROmorphone PF 0.5 MG/0.5 ML SYRINGE IVP PRN (10:25)
[2022-04-10] MEDS ORDERED: Ondansetron 4 MG/2 ML VIAL ONE (10:54)
[2022-04-10] MEDS ORDERED: *HR* Succinylcholine 200 MG/10 ML VIAL IVP ONE (10:54)
[2022-04-10] MEDS ORDERED: *HR* FentaNYL (PF) 100 MCG/2 ML VIAL ONE (10:55)
[2022-04-10] MEDS ORDERED: *HR* Remifentanil 2 MG VIAL IVP ONE (10:55)
[2022-04-10] MEDS ORDERED: *HR* Midazolam HCl 2 MG/2 ML VIAL ONE (10:55)
[2022-04-10] MEDS ORDERED: *HR* Propofol 200 MG/20 ML VIAL IVP ONE (10:55)
[2022-04-10] MEDS ORDERED: Vancomycin 1,000 MG VIAL ONE (12:11)
[2022-04-10] MEDS ORDERED: Lidocaine -MPF 2% 5 ML VIAL ONE (12:13)
[2022-04-10] MEDS ORDERED: Lidocaine Jelly 6ml 1 APPL/6 ML JEL.PF.APP ONE (13:26)
[2022-04-10] MEDS ORDERED: EPHEDrine 50 MG/ML VIAL ONE (14:15)
[2022-04-10] MEDS ORDERED: *HR* Remifentanil 1 MG VIAL IVP ONE ×2 (16:15→17:21)
[2022-04-10] MEDS ORDERED: *HR* HYDROMORPHONE 2 MG/ML VIAL ONE (18:32)
[2022-04-10] MEDS ORDERED: Insulin Human Regular 10 UNIT in 0.9 % Sodium Chloride 10 ML IV ONE (19:08)
[2022-04-10] MEDS: *HR* HYDROmorphone PF 0.5 MG/0.5 ML SYRINGE IVP PRN ×4 (19:10→19:45)
[2022-04-10] MEDS ORDERED: Nitroglycerin 0.4 MG TAB.SUBL SL PRN (20:58)
[2022-04-10] MEDS ORDERED: Naloxone 0.4 MG/ML INJ IVP PRN (20:58)
[2022-04-10] MEDS: lisinopriL 20 MG TABLET PO SCH (22:37)
[2022-04-10] MEDS: *HR* OxyCODONE Immed Rel 5 MG TABLET PO PRN (22:37)
[2022-04-11] MEDS ORDERED: CeFAZolin 2 GM/120 ML BAG IVPB SCH
[2022-04-11] MEDS: *HR* HYDROcodone/Acet 5/325 mg TABLET PO PRN ×2 (00:48→11:03)
[2022-04-11] MEDS: *HR* OxyCODONE Immed Rel 5 MG TABLET PO PRN ×3 (03:17→22:10)
[2022-04-11] MEDS: Acetaminophen 325 MG TABLET PO PRN ×2 (04:25→18:03)
[2022-04-11 07:23] LABS: Basophils % 0.2 %; Hematocrit 35.5 % (37.5-50.1); Immature Granulocytes % 0.4 % (0-4); Lymphocytes # 1.3 K/mcL (0.6-4.6); Lymphocytes % 11.2 %; Mean Corpuscular HGB Conc 32.4 g/dL (31.6-35.5); Mean Corpuscular Hemoglobin 26.7 pg (28.0-33.3); Mean Corpuscular Volume 82.6 fL (83.0-100.0); Mean Platelet Volume 10.4 fL (9.4-12.4); Monocytes # 1.1 K/mcL (0.0-1.3); Monocytes % 9.7 %; Platelet Count 276 K/mcL (140-400); Red Cell Distribution Width 13.6 % (11.5-14.5); Segmented Neutrophils % 78.5 %; White Blood Count 11.5 K/mcL (4.3-11.1)
[2022-04-11 07:24] LABS: Hemoglobin 11.5 g/dL (12.9-16.9)
[2022-04-11 07:39] LABS: BUN/Creatinine Ratio 19 (6-26); Blood Urea Nitrogen 20 mg/dL (8-23); Calcium 7.9 mg/dL (8.6-10.3); Carbon Dioxide 22 mEq/L (23-29); Chloride 100 mEq/L (98-107); Glucose 296 mg/dL (70-105); Osmolality,Calculated 288 (280-300); Potassium 4.7 mEq/L (3.5-5.1); Sodium 132 mEq/L (136-145); eGFR For African Americans > 60 (> 60); eGFR For Non-African Americans > 60 (> 60)
[2022-04-11] MEDS: Fenofibrate 54 MG TABLET PO SCH (10:14)
[2022-04-11] MEDS: lisinopriL 20 MG TABLET PO SCH ×2 (11:03→22:11)
[2022-04-11] MEDS: allopurinoL 300 MG TABLET PO SCH (11:03)
[2022-04-11] MEDS: carvediloL 6.25 MG TABLET PO SCH ×2 (11:03→18:03)
[2022-04-11] MEDS: Cholecalciferol (D-3) 1,000 UNIT (25MCG) TABLET PO SCH (11:03)
[2022-04-11] MEDS: amLODIPine 5 MG TABLET PO SCH (11:03)
[2022-04-11] MEDS: *HR* Metformin 500 MG TABLET PO SCH ×2 (11:03→18:03)
[2022-04-11] MEDS: Cyanocobalamin (B-12) 1,000 MCG TABLET PO SCH (11:03)
[2022-04-11] MEDS: BISOPROLOL FUMARATE 10 MG PO SCH (11:04)
[2022-04-11] MEDS: Furosemide 20 MG TABLET PO SCH (11:04)
[2022-04-11] MEDS: *HR* SitaGLIPtin 25 MG TABLET PO SCH (11:24)
[2022-04-11] MEDS: tiZANidine 4 MG TABLET PO SCH (22:10)
[2022-04-12] MEDS: *HR* OxyCODONE Immed Rel 5 MG TABLET PO PRN ×2 (04:59→18:06)
[2022-04-12] MEDS: allopurinoL 300 MG TABLET PO SCH (09:41)
[2022-04-12] MEDS: amLODIPine 5 MG TABLET PO SCH (09:41)
[2022-04-12] MEDS: *HR* SitaGLIPtin 25 MG TABLET PO SCH (09:42)
[2022-04-12] MEDS: Furosemide 20 MG TABLET PO SCH (09:42)
[2022-04-12] MEDS: lisinopriL 20 MG TABLET PO SCH ×2 (10:01→20:46)
[2022-04-12] MEDS: Cholecalciferol (D-3) 1,000 UNIT (25MCG) TABLET PO SCH (10:02)
[2022-04-12] MEDS: Cyanocobalamin (B-12) 1,000 MCG TABLET PO SCH (10:02)
[2022-04-12] MEDS: *HR* Metformin 500 MG TABLET PO SCH ×2 (10:05→18:01)
[2022-04-12] MEDS: carvediloL 6.25 MG TABLET PO SCH ×2 (10:05→18:01)
[2022-04-12] MEDS: BISOPROLOL FUMARATE 10 MG PO SCH (10:24)
[2022-04-12] MEDS: Fenofibrate 54 MG TABLET PO SCH (11:07)
[2022-04-12] MEDS: tiZANidine 4 MG TABLET PO SCH (20:46)
[2022-04-13] MEDS: *HR* OxyCODONE Immed Rel 5 MG TABLET PO PRN ×3 (03:53→18:19)
[2022-04-13] MEDS: Fenofibrate 54 MG TABLET PO SCH (09:19)
[2022-04-13] MEDS: lisinopriL 20 MG TABLET PO SCH ×2 (09:21→20:05)
[2022-04-13] MEDS: *HR* SitaGLIPtin 25 MG TABLET PO SCH (09:21)
[2022-04-13] MEDS: amLODIPine 5 MG TABLET PO SCH (09:21)
[2022-04-13] MEDS: carvediloL 6.25 MG TABLET PO SCH ×2 (09:21→18:18)
[2022-04-13] MEDS: Furosemide 20 MG TABLET PO SCH (09:22)
[2022-04-13] MEDS: *HR* Metformin 500 MG TABLET PO SCH ×2 (09:22→18:18)
[2022-04-13] MEDS: allopurinoL 300 MG TABLET PO SCH (09:22)
[2022-04-13] MEDS: Cholecalciferol (D-3) 1,000 UNIT (25MCG) TABLET PO SCH (09:22)
[2022-04-13] MEDS: Cyanocobalamin (B-12) 1,000 MCG TABLET PO SCH (09:22)
[2022-04-13] MEDS: tiZANidine 4 MG TABLET PO SCH (20:05)
[2022-04-14] MEDS: *HR* OxyCODONE Immed Rel 5 MG TABLET PO PRN ×2 (08:05→16:37)
[2022-04-14] MEDS: Fenofibrate 54 MG TABLET PO SCH (08:48)
[2022-04-14] MEDS: amLODIPine 5 MG TABLET PO SCH (08:48)
[2022-04-14] MEDS: allopurinoL 300 MG TABLET PO SCH (08:49)
[2022-04-14] MEDS: carvediloL 6.25 MG TABLET PO SCH ×2 (08:49→16:36)
[2022-04-14] MEDS: Cholecalciferol (D-3) 1,000 UNIT (25MCG) TABLET PO SCH (08:50)
[2022-04-14] MEDS: *HR* Metformin 500 MG TABLET PO SCH ×2 (08:50→16:37)
[2022-04-14] MEDS: lisinopriL 20 MG TABLET PO SCH (08:50)
[2022-04-14] MEDS: Cyanocobalamin (B-12) 1,000 MCG TABLET PO SCH (08:50)
[2022-04-14] MEDS: Furosemide 20 MG TABLET PO SCH (08:53)
[2022-04-14] MEDS: *HR* SitaGLIPtin 25 MG TABLET PO SCH (09:10)
[2022-04-14 11:36] VITALS: TEMP 98; O2SAT 96
[2022-04-14 16:43] VITALS: BP 142/81; PULSE 91
== END 2022-04-14 19:58 | disposition home health service (06) ==
LOC: 4WAOSI 09:52 → SDCAOSI 09:52 → 4WAOSI 20:17
PROVIDERS: ADMIT Orthopaedic Surgery Orthopaedic Surgery of the Spine; ATTEND Orthopaedic Surgery Orthopaedic Surgery of the Spine